=== PATIENT | female | born 1950 | race Caucasian/White ===

== ENCOUNTER 2017-01-11 12:46 | Inpatient (IN) | payer OTHER ==
[~2017-01-11] VITALS: Ht 166.4 cm; Wt 81.6 kg
[~2017-01-11 12:46] MED LIST: ASCO100089 PO; CHOL5000 PO; CYAN100017 SL; LACT1CAP73 PO; MAGN420T PO; MULT1CAP33 PO; VARI1940 SQ; VITA600C3 PO
[2017-01-11 13:00] VITALS: BP 145/87; PULSE 69; RESP 18; O2SAT 99
[2017-01-11 14:01] LABS: BASOPHILS % (AUTO) 0.2 % (0-3); EOSINOPHILS % (AUTO) 0.7 % (0-5); MONOCYTES % (AUTO) 10.5 % (4-12); Mean Corpuscular Hemoglobin 29.5 pg (27.0-35.0); Mean Corpuscular Volume 90.8 fL (81-100); NEUTROPHILS % (AUTO) 78.9 % (40-74); Platelet Count 171 bil/L (150-400)
[2017-01-11 14:22] LABS: Magnesium 2.1 mg/dL (1.6-2.6)
--- NOTE | 2017-01-11 15:54 | ED.REPORT ---
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 Associated symptom of subjective fever for the past week. She states that she noticed that the skin on her bottom started flanking 5-6 weeks ago. She treated with antibiotic ointment with no relief. Symptoms then progressed to "pimples" diffusely across her buttocks, and a large abscess on the right buttock that developed 9 days ago that has since begun draining after the application of hydrogen peroxide. Patient denies cough, sore throat, chest pain , nausea, vomiting, diarrhea, and urinary symptoms. Nursing Notes Stated Complaint: SWELLING ON BOTTOM/DRAINING Chief Complaint: Skin Rash/Abscess Nursing Notes Reviewed: Yes Allergies: Coded Allergies: Penicillins (Verified Allergy, Intermediate, Hives, 01/11/17) codeine (Verified Adverse Reaction, Intermediate, Nausea, 01/11/17) Scheduled Ascorbic Acid (Vitamin C) 1,000 Mg Tab.chew 2,000 MG PO DAILY Cholecalciferol (Vitamin D3) (Vitamin D3) 5,000 Unit Capsule 5,000 UNIT PO DAILY Cyanocobalamin (Vitamin B-12) (Vitamin B-12) 1,000 Mcg Tab.subl 1,000 MCG SL DAILY Magnesium Oxide (Magnesium Oxide) 420 Mg Tablet 1,260 MG PO DAILY Multivitamin (Multivitamins) 1 Each Capsule 1 EACH PO DAILY Vitamin E Acetate (Vitamin E) 600 Unit Capsule 600 UNIT PO DAILY Zoster Vaccine Live/Pf (Zostavax Vial) 19,400 Unit Vial 19,400 UNIT SQ DIRECTED General Time Seen by MD: 15:53 Chief Complaint Abscess, Rash Hx Obtained From: Patient Arrived By: Walk-in Onset Occurred: More than a week ago... (9 days) Symptom Duration: Since onset Location: : Buttock Quality: Painful Severity: Current: Moderate Severity: Maximum: Moderate Associated with: Reports Fever, Denies Abdominal pain, Denies Nausea, Denies Sore throat, Denies Vomiting Pertinent Negative: Pt denies other symptoms Similar Sx Previous: No Past Medical History Past Medical History Neuromyotonia Denies: COPD, Cancer, Congestive heart failure, Coronary artery disease, Diabetes mellitus, Hypertension, Stroke Denies: Atrial fibrillation Smoking History Never Smoker Social History Other Social History: Good social support, Review of Systems Constitutional: Reports: Fever Respiratory: Denies: Non-productive cough, Shortness of breath Cardiovascular: Denies: Chest pain GI: Denies: Abdominal pain, Diarrhea, Nausea, Vomiting Skin: Reports Rash, Reports Swelling Complete sys rev & neg: except as marked. Female: Denies: Dysuria, Hematuria, Incontinence, Urinary frequency, Urinary urgency, Urination decreased, Urination increased Physical Exam Initial Vital Signs Vital Signs (First) Date Time Temp Pulse Resp B/P Pulse Ox O2 Delivery O2 Flow Rate FiO2 01/11/17 13:00 37.2 69 18 145/87 99 Room Air Initial VS: Reviewed Head / Eyes: Atraumatic, Normocephalic Neck: Supple, Non-tender, Full range of motion Respiratory: Breath sounds normal, Clear to auscultation, No respiratory distress Cardiovascular: Regular rate & rhythm, Heart sounds normal, Intact distal pulses Abdomen / GI: Soft, Non-tender, No guarding, No rebound, No distention Extremities: Vascular intact, Neuro intact, No swelling, No tenderness Neurologic: Alert, Oriented, Nonfocal General/Constitutional: Awake, Alert, Well developed, Well nourished Skin: Warm, Dry, Intact Rash / Lesion Notes: BUTTOCKS: Dense confluent erythematous rash spanning 10cm to either side of middle cleft of the buttocks. Perianal area spared. Multiple erythematous papules. Right buttock near infragluteal fold [id number] induration with macerated 2x2cm ulcer. Left upper buttock 3x3cm with a 1x1cm macerated ulcer FACE: Erythematous malar rash. Interpretation & Diagnostics Bedside US Large partially organized phlegmon on the right buttock. Much smaller phlegmon on the left buttock. Lab Results Interpretation Result Diagram: 01/11/17 1345 01/11/17 1345 Test 01/11/17 13:45 01/11/17 15:22 White Blood Count 17.7th/mm3 (3.8-10.1) Red Blood Count 4.57mil/mm3 (3.90-5.20) Hemoglobin 13.5g/dL (12.0-15.6) Hematocrit 41.5% (35.0-46.0) Mean Corpuscular Volume 90.8fL (81-100) Mean Corpuscular Hemoglobin 29.5pg (27.0-35.0) Mean Corpuscular Hemoglobin Concent 32.5% (32.0-37.0) Red Cell Distribution Width 12.7% (12.3-15.4) Platelet Count 171bil/L (150-400) Neutrophils (%) (Auto) 78.9% (40-74) Lymphocytes (%) (Auto) 9.2% (14-46) Monocytes (%) (Auto) 10.5% (4-12) Eosinophils (%) (Auto) 0.7% (0-5) Basophils (%) (Auto) 0.2% (0-3) Sodium Level 138mEq/L (134-144) Potassium Level 4.2mEq/L (3.5-5.2) Chloride Level 99mEq/L (97-108) Carbon Dioxide Level 28mmol/L (18-29) Blood Urea Nitrogen 10mg/dL (8-27) Creatinine 0.80mg/dL (0.57-1.00) Estimat Glomerular Filtration Rate 103mL/min (>59) Glucose Level 123mg/dL (60-99) Calcium Level 9.1mg/dL (8.5-10.1) Magnesium Level 2.1mg/dL (1.6-2.6) Total Bilirubin 0.3mg/dL (0.0-1.2) Aspartate Amino Transf (AST/SGOT) 18U/L (0-50) Alanine Aminotransferase (ALT/SGPT) 19U/L (0-32) Alkaline Phosphatase 122U/L (25-165) Total Protein 7.3g/dL (6.4-8.4) Albumin 3.9g/dL (3.4-5.0) Hold Brush Top Tube Received (Received) Hold Urine Received (Received) Re-Eval/Medical Decision Re-Evaluation/Progress #1: Time of Eval: 16:15 Re-Evaluation/Progress Note: Completed bedside US. Updated patient on the plan of care. Re-Evaluation/Progress #2: Time of Eval: 17:52 Re-Evaluation/Progress Note: Discussed lab results and need for admission. Patient is amenable to the plan. All other questions addressed. Re-Evaluation/Progress #3: Time of Eval: 18:48 Re-Evaluation/Progress Note: Discussed plan to be seen by Dr. Le, Dermatology. Consultation #1: Referral / Consult Name: Brian Danielle MD Consulted With: Surgeon Call Returned at: 17:03 Deckhand Oyster Dredge: Will see patient Consultation #2: Referral / Consult Name: Brian Danielle MD Call Returned at: 17:29 Note: Dr. Danielle, Surgeon, is now present at the bedside. Discussed patient's case. He recommends admission. Consultation #3: Referral / Consult Name: Maldonado Lloyd MD Consulted With: Hospitalist Call Returned at: 18:02 Deckhand Oyster Dredge: Agrees with eval, Agrees with plan, Accepts admit Consultation #4: Referral / Consult Name: Dre Le DO Consulted With: On-call physician (Dermatology) Call Returned at: 18:07 Note: Called Dr. Le, Con[employer]ator. No answer. Left a message. Consultation #5: Referral / Consult Name: Dre Le DO Consulted With: On-call physician (Dermatology) Call Returned at: 18:41 Deckhand Oyster Dredge: Will see patient Note: Dr. Le called back. Discussed patient case. He will see the patient pending determination of inpatient privileges. If not, he will see the patient after she is discharged. Counseled Regarding: Diagnosis, Lab results, Need for admission Discharge & Departure Impression: Primary Impression: Dermatitis Additional Impression: Abscess of buttock Disposition: ADMITTED TO HOSPITAL Discharge Condition All VS Reviewed: Yes Condition: Stable Referrals: Meseret Echeverria MD (PCP) Dre Le Attestation Portions of this note were transcribed by Og Du. I, Dr. Rhodes, personally performed the history, physical exam and medical decision-making; I reviewed and confirmed the accuracy of the information in the transcribed note. Signed by: Laisha Alfred, 01/11/2017 and 18:51 copies to: Meseret Echeverria MD; Dre Le Kirk H MD Jan 11, 2017 15:54 OG DU Jan 11, 2017 16:16
[2017-01-11] MEDS ORDERED: TerBINafine 1% 15 Gm Cream TOPICAL ONE (18:00)
[2017-01-11] MEDS ORDERED: CeFAZolin Inj 1 GM in IV Premix 1 EACH IV ONE (18:00)
[2017-01-11] MEDS ORDERED: Trimethoprim-Sulfa 160 mg-800 mg Tablet PO ONE (18:00)
[2017-01-11] MEDS ORDERED: Polyethylene Glycol (PEG) 17 Gm Powder PO PRN (18:05)
[2017-01-11] MEDS ORDERED: Ondansetron 2 mg/mL 2 mL Inj IVPUSH PRN (18:05)
[2017-01-11] MEDS ORDERED: Alum-Mag Hydrox-Simeth 30 mL Suspension PO PRN (18:05)
[2017-01-11] MEDS: 0.9% Sodium Chloride 1,000 ML IV SCH (19:10)
[2017-01-11 20:25] VITALS: BP 147/72; PULSE 90; O2SAT 97
--- NOTE | 2017-01-11 20:29 | CONS ---
[address] [address] CONSULTATION REPORT PATIENT: SULY MYRICK : 1950 MR#: [id number] ADMIT: 01/11/2017 JOB ID: [id number] DATE OF SERVICE: 01/11/2017 CHIEF COMPLAINT: This is a patient of Dr. Rhodes who has asked me to consult on this woman with bilateral buttock lesions in the emergency department. HISTORY OF PRESENT ILLNESS: This is a patient with a history of neural myotonia and chronic asymptomatic malar rash who presents to the emergency department with six weeks of bilateral skin changes on her buttocks, fever for one week, recent onset of punctate pustules on her bilateral buttocks and now one week of a focal painful lesion on her right buttock that has begun weeping. MEDICATIONS: Limited to vitamins. ALLERGIES: 1. PENICILLIN. 2. CODEINE. SOCIAL HISTORY: She is , seen with her . Negative tobacco. Negative daily alcohol use. REVIEW OF SYSTEMS: Per Dr. Rhodes's note. PHYSICAL EXAMINATION: Directed examination reveals that she does have diffusely thickened, erythematous skin that blanches onto the bilateral buttocks that appears to be some sort of contact dermatitis. She does have some small pustules surrounding these areas. On her left hip, she has a small area of induration on the right. Right hip she has a larger area of induration with some superficial skin breakdown, no fluctuance and no purulence Dr. Rhodes has performed a bedside ultrasound that has demonstrated a phlegmon of this mass with some fluid components in this area. LABORATORY DATA: Her white count is 17.7, hematocrit is 41. Chemistries are normal. Glucose is 123. IMPRESSION/PLAN: This appears to be a relatively healthy, 66-year-old woman with some sort of a skin rash on her buttocks with now secondary pustules and an area of cellulitis and possible forming abscess. Given the overall condition of her skin, I would not want to make an incision for drainage unless absolutely mandatory at this point. I have discussed the case with Dr. Rhodes. His plan was to have her admitted to the Medicine Service for intravenous antibiotics and wound care. I think it is also important that we get a dermatology consult to come by and take a look at her in case the combination of the malar rash and the buttocks rash reveal some sort of underlying dermatologic diagnosis that could be treated. Ideally, we will get her underlying skin problem on her buttocks under control prior to the need for incision and drainage of a buttock abscess. General Surgery will follow along this hospitalization.
--- NOTE | 2017-01-11 23:27 | PCM.HPMED ---
Subjective Date of Service Jan 11, 2017 Primary Provider: Admitting Physician: Maldonado Lloyd MD Primary Care Physician: Meseret Echeverria MD Attending Physician: Maldonado Lloyd MD Admit Status: From the Emergency Department, 23-Hour Observation, Non-Telemetry Chief Complaint: buttock abscess History of Present Illness: Bar Venegas is a 66 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 ER accompanied by her complaining of a painful rash and abscess on her buttocks. Associated symptom of subjective fever with some chills. She states that she noticed that the skin on her bottom started flanking 5-6 weeks ago. She treated with antibiotic ointment with no relief. Symptoms then progressed to "pimples" diffusely across her buttocks, and a large abscess on the right buttock that developed 9 days ago that has since begun draining after the application of hydrogen peroxide. She also has another smaller abscess in the upper left upper buttock area which is also draining. Patient denies cough, sore throat, chest pain, nausea, vomiting, diarrhea, and urinary symptoms. Case discussed with Dr Rhodes, he spoke to Dr Danielle who evaluated the patient and recommended admission for IV antibiotics. Labs noted for leukocytosis. Review of Systems: Pertinent positives as noted in HPI. All other systems were reviewed and are negative Allergies Coded Allergies: Penicillins (Verified Allergy, Intermediate, Hives, 01/11/17) codeine (Verified Adverse Reaction, Intermediate, Nausea, 01/11/17) Home Medications From Bar Castillo [id number] 1950 12/30/2015 11:40 AM 11/17 celecoxib 200 mg capsule take 1 capsule by oral route every day as needed Daily Multiple tablet take 1 tablet by oral route every day with food hydrocodone 5 mg-acetaminophen 325 mg tablet take 1 tablet by oral route every 6 hours as needed for pain magnesium oxide 1440mg dialy Vitamin C 2400mg daily Vitamin D3 5,000 unit tablet 1 daily vitamin E 600 unit capsule PMH Vitamin B deficiency Autoantibody titer positive Smooth muscle spasm White matter abnormality on MRI of brain Abnormal gait due to Possible Neuromyotonia Elevated Blood pressure but no Hypertension Diverticulosis . Surgical History No surgeries Family History Father had myocardial infarction Mother recently she was over 90 Social History Hx Alcohol Use: No Hx Substance Use: No Hx Tobacco Use: No Smoking Status: Never Smoker Living Arrangement: with Family Exam Vital Signs Vital Sign - Last Date Time Temp Pulse Resp B/P Pulse Ox O2 Delivery O2 Flow Rate FiO2 01/11/17 13:00 37.2 69 18 145/87 99 Room Air Exam General: Alert, Oriented X3, Cooperative, No acute Distress Eyes: PERRLA, Scleral Anicteric Mouth: Mouth Normal, Mucous Membranes Moist/[place] Neck: Supple, no Thyromegaly, trachea central. Chest & Lungs: Clear to auscultation & percussion, No adventitious breath sounds, no crackles, no wheeze Cardiovascular: Normal S1, Normal S2, No Murmurs/Rubs/Gallops, Regular Rate/ Rhythm, (No JVD, no peripheral edema) Pulses: Radial (present and equal), Dorsalis Pedi (present and equal) Abdomen: Soft, Non-tender, Non-distended, Normoactive bowel tones. Musculoskeletal: Unremarkable. Normal range of motion, no swollen or erythematous joints Extremities: No edema, no cyanosis, no clubbing. Skin: Around the buttock area there is dense erythematous rash spanning 10 cm to either side of the midline cleft of the buttocks. Perianal area spared. Multiple erythematous papules. Right buttock near infragluteal fold 10x10 cm induration with macerated 2x2 cm ulcer. Left upper buttock 3x3 cm with a 1x1 cm ulcer Neurological: Grossly neurologically intact, has generalized weakness, chronic slurring Speech, Sensation Intact Lymphatic: Lymph nodes Cervical and Axillary not palpable Lab and Diagnostics Labs Laboratory Tests Test 01/11/17 13:45 01/11/17 15:22 White Blood Count 17.7th/mm3 (3.8-10.1) Red Blood Count 4.57mil/mm3 (3.90-5.20) Hemoglobin 13.5g/dL (12.0-15.6) Hematocrit 41.5% (35.0-46.0) Mean Corpuscular Volume 90.8fL (81-100) Mean Corpuscular Hemoglobin 29.5pg (27.0-35.0) Mean Corpuscular Hemoglobin Concent 32.5% (32.0-37.0) Red Cell Distribution Width 12.7% (12.3-15.4) Platelet Count 171bil/L (150-400) Neutrophils (%) (Auto) 78.9% (40-74) Lymphocytes (%) (Auto) 9.2% (14-46) Monocytes (%) (Auto) 10.5% (4-12) Eosinophils (%) (Auto) 0.7% (0-5) Basophils (%) (Auto) 0.2% (0-3) Sodium Level 138mEq/L (134-144) Potassium Level 4.2mEq/L (3.5-5.2) Chloride Level 99mEq/L (97-108) Carbon Dioxide Level 28mmol/L (18-29) Blood Urea Nitrogen 10mg/dL (8-27) Creatinine 0.80mg/dL (0.57-1.00) Estimat Glomerular Filtration Rate 103mL/min (>59) Glucose Level 123mg/dL (60-99) Calcium Level 9.1mg/dL (8.5-10.1) Magnesium Level 2.1mg/dL (1.6-2.6) Total Bilirubin 0.3mg/dL (0.0-1.2) Aspartate Amino Transf (AST/SGOT) 18U/L (0-50) Alanine Aminotransferase (ALT/SGPT) 19U/L (0-32) Alkaline Phosphatase 122U/L (25-165) Total Protein 7.3g/dL (6.4-8.4) Albumin 3.9g/dL (3.4-5.0) Hold Brush Top Tube Received (Received) Hold Urine Received (Received) Microbiology 01/11/17 Blood Culture, Received Pending Result Diagram: 01/11/17 1345 01/11/17 1345 Assessment & Plan Bar Venegas is a 66 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 ER accompanied by her complaining of a painful rash and abscess on her buttock 1. Acute Buttock abscesses. Present on admission There is some suspicion it started with a possible dermitis that may have developed into abscesses due to skin breakdown allow bacterial assess. - continuing Cefazolin IV - blood cultures and wound cultures to guide further antibiotics choice - wound care consult - possible a Curing Press Maintainer consult maybe needed 2. Leukocytosis. Acute. Present on admission No sepsis as criteria are not meet - continue IV fluids and antibiotics as above 3. Neuromyotonia. Chronic Unfortunately there are no good therapy at the moment and costly - print finishing worker assessment if there are any needs at home - continue to follow up with Dr Rhoades as outpatient - Acetaminophen as needed for mild pain/fever/headache - Bowel regimen as needed - Antiemetic as needed Patient is admitted under observation status with expected length of stay less than 2 midnights due to severity of presenting symptoms, risk of adverse event, and complexity of treatment plan. . Resuscitation Status: CPR: Attempt Resuscitation Maldonado Lloyd MD Jan 11, 2017 19:42
[2017-01-12 00:38] VITALS: BP 167/79; PULSE 82; RESP 18; O2SAT 98
[2017-01-12] MEDS: CeFAZolin Inj 1 GM in IV Premix 1 EACH IV SCH ×3 (01:01→18:35)
[2017-01-12] MEDS: Heparin 5,000 Unit/mL Inj SUBQ SCH ×3 (01:01→18:35)
--- NOTE | 2017-01-12 03:34 | NUR ---
ADMIT/PAIN Patient arrived on unit from ED, able to ambulate and transfer one person stand by assist. Patient oriented to room in addition to watching admission video. Patient arrived with belongings then sent purse home with . Denies any pain at this time, however c/o discomfort with movement.
[2017-01-12] MEDS: 0.9% Sodium Chloride 1,000 ML IV SCH ×2 (04:03→12:38)
[2017-01-12 06:11] VITALS: BP 146/81; PULSE 79; RESP 16; O2SAT 99
[2017-01-12 06:48] LABS: BASOPHILS % (AUTO) 0.1 % (0-3); EOSINOPHILS % (AUTO) 1.5 % (0-5); MONOCYTES % (AUTO) 13.5 % (4-12); Mean Corpuscular Volume 90.6 fL (81-100); NEUTROPHILS % (AUTO) 69.7 % (40-74); Platelet Count 174 bil/L (150-400)
[2017-01-12 08:09] VITALS: BP 114/64; PULSE 53; RESP 16; O2SAT 100
[2017-01-12] MEDS: Polyethylene Glycol (PEG) 17 Gm Powder PO SCH (10:41)
--- NOTE | 2017-01-12 10:48 | PCM.PNSURG ---
Subjective Date of Service: Jan 12, 2017 Visit Information: Reason for Visit Dermatitis, Buttock Abscess Surgery/Surgery Date Post-Op Day # Date of Admission: Jan 11, 2017 at 19:16 Hospital Day #2 Subjective: Has not been seen by dermatology. Complains of painful desquamating red rash on both buttocks 9 days, worse 3 days ago. Only medications are ibuprofen and vitamins. Cannot relate a history of any significant contact to a toxin. [place] not been out of the country recently. Postop General: Other (as above) Pain Management: Other (IV Toradol and acetaminophen) Postop Activity: Ambulating in Room Only Objective Objective Buttocks are examined: Both buttocks are almost entirely covered with a red not raised desquamating rash with multiple satellite lesions on the left buttock. There is an approximately 4 cm area of induration at the left superior buttock and an approximately 8 cm area of induration at the right inferior buttock. Both areas of induration are weeping sero- purulent material. Left buttock drainage is sent for culture and sensitivity. Vital Sign- Last 8 Hours Date Time Temp Pulse Resp B/P Pulse Ox O2 Delivery O2 Flow Rate FiO2 01/12/17 08:09 37.2 53 16 114/64 100 Room Air 01/12/17 06:11 37.0 79 16 146/81 99 Room Air Intake and Output- Last 8 Hour 01/12/17 Cumulative From/Thru 06:59 01/11/17 13:00 - 01/12/17 05:58 Intake Total 890 ml 1890 ml Balance 890 ml 1890 ml Intake IV Total 890 ml 1890 ml General: Alert, Cooperative, No Acute Distress Lungs: Clear to Auscultation Heart: Regular Rate/Rhythm Neuro: Normal Speech Result Diagram: 01/12/17 0630 01/11/17 1345 Assessment & Plan Impression Primary diagnosis: Bilateral buttock desquamating skin rashes with 2 areas of induration most likely forming abscesses. HD #2 pending dermatology consultation prior to incision and drainage. Other diagnoses: 1. Vitamin B deficiency 2. Autoantibody titer positive 3. Smooth muscle spasm 4. White matter abnormality on MRI of brain 5. Abnormal gait due to Possible Neuromyotonia 6. Elevated Blood pressure but no Hypertension 7. Diverticulosis 8. Chronic neuromyotonia Problems: Plan 1. Left buttock area of induration drainage sent for culture and sensitivity. 2. I and D's pending dermatology consultation. Pain Management: Toradol Acetaminophen VTE Prophylaxis: Sub-Q Heparin (Unfractionated) Resuscitation Status: CPR: Attempt Resuscitation Ej Cooper PA-C Jan 12, 2017 10:48
--- NOTE | 2017-01-12 12:31 | PCM.PNMED ---
Subjective Date of Service Jan 12, 2017 Subjective pt had one episode of breakthrough fever on Cefazolin 37.6, however remained afebrile afterwards surgery recommended serm consult, Dr.Sam Cardenas Exam Vital Signs Vital Sign - Last Date Time Temp Pulse Resp B/P Pulse Ox O2 Delivery O2 Flow Rate FiO2 01/12/17 08:09 37.2 53 16 114/64 100 Room Air Intake and Output 01/11/17 01/11/17 01/12/17 Cumulative From/Thru 15:00 23:00 07:00 01/11/17 13:00 - 01/12/17 05:58 Intake Total 1000 ml 890 ml 1890 ml Balance 1000 ml 890 ml 1890 ml Intake IV Total 1000 ml 890 ml 1890 ml Exam NAD, comfortably laying down on the bed no JVD, MMM, no LAD RRR, nl s1, s2 no mrg CTAB, no w,c S,ND,NT,normoactive BS+ warm, no edema, pulses 2/2 SKIN:two indurated ulcers with discolored base with surrounding erythema on Lt buttock and rt buttock, Lt 3cm-4 diameter round shape >Rt 1-2cm, tender to palpate IVs and Medications Medications Reviewed: Medications were reviewed in detail Lab and Diagnostics Result Diagram: 01/12/17 0630 01/11/17 1345 Assessment & Plan Bar Venegas is a 66 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 ER accompanied by her complaining of a painful rash and abscess on her buttock acute, active #Acute Buttock abscesses. Present on admission, no images to assess depth, subacute onset, wbc, subjective fever, -appreciate surgery consult for I&D, plan to I&D after derm evaluate the wound -as per Dr.Sam Cardenas, he is not able to see patient, will coordinate with surgery -follow up eval also with wound care service, -Cefazolin started, clinically stable despite one episode of fever, no SIRS, continue for now, low threshold to broaden to cover MRSA, send MRSA screen as well. -awaits wound culture from wound care/surgery, FU BCX #Facial redness, chronic more than >14yrs, pt was told that it was Rosacea, no hx of SLE in the past. -given its chronicity, no joint sx, this is probably right dz but given no work- up, will send NEHEMIAS, anti ds-DNA ab to exclude lupus chronic, stable #Neuromyotonia. Chronic, Unfortunately there are no good therapy at the moment and costly, follow Miquel Rhoades as outpatient dispo: based on surgical intervention diet: general Full Code VTE Prophylaxis: Sub-Q Heparin (Unfractionated) VTE Mechanical Devices: Intermittant Pneumatic CD Resuscitation Status: CPR: Attempt Resuscitation Time spent 35min Ariel Raymond MD Jan 12, 2017 12:10
[2017-01-12 13:03] VITALS: BP 136/74; PULSE 72; RESP 16; O2SAT 99
--- NOTE | 2017-01-12 13:49 | NUR ---
Pain P: pt's pain level not decreasing w/Tylenol I: MD prescribed Toradol, primary RN admin via IV push E: Assess pain 30 min later,pt reported 2/10 on pain scale
--- NOTE | 2017-01-12 15:49 | NUR ---
WOUND/ABSCESS Bilateral wound abscesses on buttocks were draining sanguineous/purulent drainage after patient got up and used bathroom. IV abx running. Placed abd pad to help absorb drainage and patient is wearing brief. Wound care came to assess patient and changed dressing. Wound culture swab sent to lab. Patient's pain is better managed with IV toradol. Continue to monitor on hourly rounding.
--- NOTE | 2017-01-12 16:17 | NUR ---
Social Work-assessment: Data:EMR reviewed. Pt is a 66 y/o female who was admitted on 01/11/17 for dermatitis per H&P. Pt's insurance is and PCP is Meseret Echeverria MD. EMR Reviewed. SW met with pt and at bedside, SW role explained. Pt is alert and oriented x3. Pt resides at home with her on [address] where she remains independent with ADLs. Pt drives and uses a fww and cane when out in the community. Pt has no HH or SNF history. Pt has no fci care insurance or VA benefits. SW discussed DPOA/ advanced directive, pt confirms she has completed this, SW encouraged a copy to be brought in. Wound care is following pt. SW provided phone number and plan on white board in room. SW will continue to follow. Assessment:Pt who is independent at baseline. Plan:Pt to discharge home medically stable via POV. R/O wound care needs. SW will continue to follow. COOKIE Ferris
--- NOTE | 2017-01-12 17:57 | NUR ---
Wound Care Wound evaluation order received, patient seen at bedside. 66 yo female with 2 large indurated areas at her left (5cm) and right(10cm) buttock, with ulcerations centrally which are necrotic and draining purulent boss fluid on a moderate basis. Right ulceration measures 4.5 cm x 3 cm and left measures 1 cm x 1.5 cm. Both buttocks have erythema in a field of skin desquamation. Patient is currently on iv cefazolin but left buttock wound was cultured anyway. Redressed with abd pads and tape. Will need surgical I&D of these areas and then depending on the nature of wounds post surgically will probably need NPWT as well. Will follow up post surgically, for now nursing can change dressings PRN for soiling.
[2017-01-12 18:23] VITALS: BP 147/76; PULSE 81; RESP 16; O2SAT 98
--- NOTE | 2017-01-12 19:38 | NUR ---
NEW ABBESS After patient used bathroom this afternoon, indicated a new possible abbess. Upon assessment, patient's L labia is red and swollen with hard palpable soft tissue. No open area or drainage present.
[2017-01-12 20:30] VITALS: BP 125/74; PULSE 78; RESP 16; O2SAT 95
[2017-01-13] VITALS (17 sets, daily range): BP systolic 73–148; BP diastolic 37–84; PULSE 54–90; RESP 13–18; O2SAT 96–100
[2017-01-13] MEDS: 0.9% Sodium Chloride 1,000 ML IV SCH ×2 (01:25→10:03)
[2017-01-13] MEDS: Heparin 5,000 Unit/mL Inj SUBQ SCH ×3 (01:29→18:24)
[2017-01-13] MEDS: CeFAZolin Inj 1 GM in IV Premix 1 EACH IV SCH (01:30)
--- NOTE | 2017-01-13 03:37 | NUR ---
Pain/drainage After ambulating partway through shift, pt. was in severe pain. IV toradol given. Pt. is now sleeping. Abscess on left buttock is having minimal serous drainage, where abscess on rt. buttock is having moderate to heavy serous drainage. Gave pt. education on being NPO at midnight as ordered by . Pt. understood and has been NPO since midnight. Will continue to monitor.
[2017-01-13] MEDS ORDERED: Vancomycin Inj 1,250 MG in 0.9% Sodium Chloride 250 ML IV ONE (08:00)
[2017-01-13] MEDS: Polyethylene Glycol (PEG) 17 Gm Powder PO SCH (08:14)
[2017-01-13 08:24] LABS: BASOPHILS % (AUTO) 0.4 % (0-3); EOSINOPHILS % (AUTO) 4.3 % (0-5); MONOCYTES % (AUTO) 12.8 % (4-12); Mean Corpuscular Volume 90.5 fL (81-100); NEUTROPHILS % (AUTO) 61.6 % (40-74); Platelet Count 174 bil/L (150-400)
[2017-01-13] MEDS ORDERED: DEXTROSE 5% IV SCH (08:30)
[2017-01-13] MEDS: Vancomycin Dose per Pharmacist XX SCH (08:30)
[2017-01-13] MEDS ORDERED: CEFAZOLIN IV SCH (08:30)
[2017-01-13 08:59] LABS: Magnesium 1.9 mg/dL (1.6-2.6); Phosphorus 2.8 mg/dL (2.5-4.9)
[2017-01-13 09:36] LABS: ERYTHROCYTE SEDIMENTATION RATE 79 mm/hr (0-40)
--- NOTE | 2017-01-13 12:12 | PCM.PNMED ---
Subjective Date of Service Jan 13, 2017 Subjective pt had mild fever 37.6 again, still in pain, found to have new abscess in labium plan to get CT and possible I&D per surgery today abx switched to vanc given fever, prelim cultures-staph aureus Exam Vital Signs Vital Sign - Last Date Time Temp Pulse Resp B/P Pulse Ox O2 Delivery O2 Flow Rate FiO2 01/13/17 08:58 36.8 65 14 140/79 96 Room Air Intake and Output 01/12/17 01/12/17 01/13/17 Cumulative From/Thru 15:00 23:00 07:00 01/11/17 13:00 - 01/13/17 06:09 Intake Total 1309 ml 1991 ml 5190 ml Output Total 1100 ml 1000 ml 2100 ml Balance 209 ml 991 ml 3090 ml Intake Oral 697 ml 900 ml 1597 ml IV Total 612 ml 1091 ml 3593 ml Output Urine Total 1100 ml 1000 ml 2100 ml Exam NAD, comfortably laying down on the bed no JVD, MMM, no LAD RRR, nl s1, s2 no mrg CTAB, no w,c S,ND,NT,normoactive BS+ warm, no edema, pulses 2/2 SKIN:sterilely dressed, labial area-tender, redness, indurating ulcer IVs and Medications Medications Reviewed: Medications were reviewed in detail Lab and Diagnostics Result Diagram: 01/13/17 0800 01/13/17 0800 Assessment & Plan Bar Venegas is a 66 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 ER accompanied by her complaining of a painful rash and abscess on her buttock acute, active #Acute Buttock abscesses and perineal abscess, Present on admission, no images to assess depth, subacute onset, wbc, subjective fever, -appreciate surgery consult for I&D, plan to I&D after CT -as per Dr.Sam Cardenas, he is not able to see patient, no hospital privilege -follow up eval also with wound care service, -Cefazolin started on adm, switched to vanc 01/13 given prelim culture result, recurrent fever -awaits final wound culture from wound care/surgery, FU BCX #Facial redness, chronic more than >14yrs, pt was told that it was Rosacea, no hx of SLE in the past. -given its chronicity, no joint sx, this is probably right dz but given no work- up, sent NEHEMIAS, anti ds-DNA ab to exclude lupus chronic, stable #Neuromyotonia. Chronic, Unfortunately there are no good therapy at the moment and costly, follow Miquel Rhoades as outpatient dispo: based on surgical intervention diet: general Full Code VTE Prophylaxis: Sub-Q Heparin (Unfractionated) VTE Mechanical Devices: Intermittant Pneumatic CD Resuscitation Status: CPR: Attempt Resuscitation Time spent 35min Ariel Raymond MD Jan 13, 2017 12:12
[2017-01-13] MEDS: cefTRIAXone Inj 1,000 MG in Dextrose 5% Minibag Plus 50 ML IV SCH ×2 (13:15→15:13)
[2017-01-13] MEDS: Clindamycin Inj 900 MG in IV Premix 1 EACH IV SCH ×3 (13:15→18:24)
--- NOTE | 2017-01-13 13:37 | PROG NOTE ---
[address] [address] PROGRESS NOTE PATIENT: SULY MYRICK : 1950 MR#: [id number] ADMIT: 01/11/2017 JOB ID: [id number] DATE: 01/13/2017 SUBJECTIVE: The patient was seen by wound care yesterday, not seen by a dermatology. She has been afebrile this morning. Vital signs are stable. She was seen by wound care yesterday. This morning on rounds it seemed that her problems had progressed in that she had had skin necrosis over the right-sided buttock lesion, with some necrotic fat underneath, but not a really large pus pocket. She developed additional pustules of satellite lesions as well. She was complaining now of the redness in the perineal area with a new lesion that was firm and tender. I contacted Dr. Le of Dermatology, who was good enough to come over and examine her. I also ordered a CAT scan because of the concern of possible deep infection in the perineum as well as the concern of fistulization, although she has no history suggestive of Crohn disease. Currently her examination is stable although she continues to slough some of the skin overlying the two buttock lesions. Dr. Le and I have discussed the differential diagnosis including the possibility of pyoderma gangrenosum with secondary infection versus some sort of necrotizing progressive soft tissue infection. We also discussed whether this could simply be an extremely bad case of MRSA infection. He feels that her malar rash represents a standard rosacea and is likely not related. Although she states that her neuromyotonia is an autoimmune disorder, he feels that this is most likely primarily an infectious problem. PLAN: The plan will be to take her to the operating room and I will put her up in lithotomy under general anesthetic. I will drain whatever pus needs to be drained, but I do think we need to broaden the spectrum of her antibiotic coverage. I would suggest an infectious disease consultation, although I am not certain that on is available today. I will order Zosyn and clindamycin pending our trip to the OR. I have told her that I am hoping to simply drain two or three areas, but I have warned her about the possibility of finding some sort of necrotizing soft tissue infection that would require a greater amount of debridement and possibly even an eventual skin graft. She agrees to proceed. I will also biopsy the wound edges to rule out pyoderma gangrenosum per Dr. Le's suggestion.
--- NOTE | 2017-01-13 14:35 | NUR ---
TRANSFER TO OR Voided prior to going to OR. IV saline locked. Patient stood and transferred to OR gurney with SBA/minimal assistance. Send IV abx with patient to be infused in OR. accompanied patient up to OR.
[2017-01-13] MEDS ORDERED: fentaNYL-PF 50 mCg/mL 2 mL Inj ONE (14:40)
--- NOTE | 2017-01-13 14:59 | DRSVH ---
PROCEDURE: CT PELVIS WITH CONTRAST ([id number]) INDICATIONS: rash and progressive infectious perineal lesions TECHNIQUE: After the administration of intravenous contrast, 5 mm thick sections acquired from the iliac crests to the symphysis. 5 mm coronal and sagittal reformats were acquired. For radiation dose reduction, the following was used: automated exposure control, adjustment of mA and/or kV according to patient size. COMPARISON: [facility], CT, CT CHEST ABD PELVIS W CON, 10/17/2015, 11:56. FINDINGS: Image quality: Excellent. Peritoneum and bowel: Bowel loops demonstrate normal wall thickness and caliber. No free fluid or a ir. Genitourinary: Bladder wall thickness is normal. Exophytic mass protrudes posteriorly from the uter ine fundus, as before, measuring roughly 40 mm, and is not significantly changed. Nodes and vessels: No iliac, pelvic, or inguinal adenopathy by size criteria. Iliac vessels demonst rate normal size and enhancement. Bones: No suspicious bony lesions. Miscellaneous: No inguinal hernias. There is severe subcutaneous edema within the right inferomedia l gluteal region. There are a few small foci of superficial subcutaneous gas within the right inferom edial gluteal region. There is moderate subcutaneous fat stranding within the left inferomedial glute al region. Moderate fat stranding within the subcutaneous fat of the left mons pubis. IMPRESSION: 1. Right greater than left inferomedial gluteal cellulitis. There is associated soft tissue gas withi n the subcutaneous fat of the right inferomedial gluteal region, suggestive of ulceration and/or infe ction with a gas producing organism. Cellulitis within the subcutaneous fat of the left mons pubis. 2. No change in left uterine fibroid. 3. Findings discussed with Dr. Danielle's nurse, May Soriano, on 01.13.17 at 14:57 hrs. She understood t he urgent nature of the findings, and agreed to communicate them to Dr. Danielle as soon as possible. Dictated by: Kenzie Paul M.D. on 01/13/2017 at 14:52 Transcribed by: RAMON on 01/13/2017 at 14:59 Approved by: Kenzie Paul M.D. on 01/13/2017 at 14:59
[2017-01-13] MEDS ORDERED: Lactated Ringer's 1,000 ML IV ONE ×3 (15:03→16:45)
--- NOTE | 2017-01-13 15:04 | PCM.HPANE ---
Patient Data Surgeon Admitting Provider:Maldonado Lloyd MD Attending Provider:Maldonado Lloyd MD Primary Care Physician:Meseret Echeverria MD Other Provider: Reason for Visit Dermatitis, Buttock Abscess Ht/WT & BMI Height (Feet): 5 Height (Inches): 5.50 Weight (Kilograms): 84.200 Body Mass Index 30.56 Allergies Coded Allergies: Penicillins (Verified Allergy, Intermediate, Hives, 01/11/17) codeine (Verified Adverse Reaction, Intermediate, Nausea, 01/11/17) Diabetes History Current Bedside Blood Glucose: 81 MRSA MRSA: No Medications Reported Medications Zoster Vaccine Live/Pf (Zostavax Vial)19,400 Unit Vial19,400 Unit SQ DIRECTED 10/16/15 Vitamin E Acetate (Vitamin E)600 Unit [id number] Unit PO DAILY 10/16/15 Cholecalciferol (Vitamin D3) (Vitamin D3)5,000 Unit Capsule5,000 Unit PO DAILY 10/16/15 Ascorbic Acid (Vitamin C)1,000 Mg Tab.chew2,000 Mg PO DAILY Ref 0 10/16/15 Cyanocobalamin (Vitamin B-12) (Vitamin B-12)1,000 Mcg Tab.subl1,000 Mcg SL DAILY 10/16/15 Magnesium Oxide 420 Mg Tablet1,260 Mg PO DAILY 10/16/15 Multivitamin (Multivitamins)1 Each Capsule1 Each PO DAILY 10/16/15 Discontinued Reported Medications Lactobacillus Combo No.11 (Probiotic)1 Each Cap.sprink1 Each PO TID 10/16/15 History History of ENT Problems?: No Hx of Heart Problems?: No Hx of Respiratory Problem?: No Hx Neurologic Problems?: No Other Neurological Pertinent: neurologic myotonia, muscle spasms, slurred speech. Hx of GI Problems?: No Hx of Problems?: Yes Genitourinary History: Positive for:: Urinary Tract Infection (years ago) Female Hx: Denies:: Currently Other Skin Pertinent History: Abcess on buttocks Hx Musculoskeletal Problems?: Yes Musculoskeletal History: Positive for:: Musculoskeletal Trauma (Neck injury in mid 20's) Hx of Psycho/Social Problems?: No Other History: Positive for:: Thyroid Disease (Nodule and a cyst on thyroid) History Blood Transfusions: Positive for:: Accept Blood Products? Denies:: Blood Transfusions Bedside Blood Glucose: 81 Hx Alcohol Use: NoHx Substance Use: No Smoking Status: Never Smoker Stop/Bang Treated for Sleep Apnea?: No S-Snoring: Do You Snore Loudly: No T-Tired: feel tired, fatigued: No O-Obsered: Observed not breath: No P-Blood Pressure: treated: No B- Body Mass Index > 35 kg/m2: No A- Age over 50: Yes N- Neck Large Circumference: No G- Gender Male: No GEORGETTE Total Score: 0 GEORGETTE Risk Assessment: Low Risk, <3 Yes Risk Assessment Category Category 1A: Patient has history of documented sleep apnea, and HAS NOT received any narcotic, sedative or anesthesia administration during this stay. Category 1B: Patient has history of documented sleep apnea, and HAS received any narcotic , sedative or anesthesia administration during this stay Category 2: Patient has SUSPECTED Obstructive Sleep Apnea, and HAS received any narcotic , sedative or anesthesia administration during this stay. Category 3: Patient has SUSPECTED Obstructive Sleep Apnea and HAS NOT received narcotic, sedative or anesthesia administration during this stay. Category 4: Outpatient in Procedural Areas with known sleep apnea or who screen positive for High Risk via the STOP/BANG questionnaire. Exam Exam Vital Signs Vital Signs Date Time Temp Pulse Resp B/P Pulse Ox O2 Delivery O2 Flow Rate FiO2 01/13/17 08:58 36.8 65 14 140/79 96 Room Air General Appearance: Alert, Oriented X3, Cooperative, No Acute Distress HEENT/AIRWAY: MP 2 Lungs: Clear to Auscultation, Normal Air Movement Heart: Exam Unremarkable, Regular Rate/Rhythm, No Murmurs/Rubs/Gallops Meds/Labs/Diagnostics Admission Meds Current Medications Vancomycin HCl/ Sodium Chloride (Vancocin Inj/ Normal Saline) 250 ml @ 166.667 mls/hr ONCE ONCE IV Last administered on 01/13/17t 09:09; Start 01/13/17 at 08: 00; Stop 01/13/17 at 09:29; Status DC Bedside Blood Glucose: 81 Labs Test 01/11/17 13:45 01/11/17 15:22 01/12/17 06:30 01/13/17 08:00 Hold Brush Top Tube Received (Received) Hold Urine Received (Received) Anti-Nuclear Antibody Screen Negative (Negative) Anti-Double Strand DNA Antibody <1IU/mL (0-9) White Blood Count 11.1th/mm3 (3.8-10.1) Red Blood Count 3.90mil/mm3 (3.90-5.20) Hemoglobin 11.3g/dL (12.0-15.6) Hematocrit 35.3% (35.0-46.0) Mean Corpuscular Volume 90.5fL (81-100) Mean Corpuscular Hemoglobin 29.0pg (27.0-35.0) Mean Corpuscular Hemoglobin Concent 32.0% (32.0-37.0) Red Cell Distribution Width 12.4% (12.3-15.4) Platelet Count 174bil/L (150-400) Neutrophils (%) (Auto) 61.6% (40-74) Lymphocytes (%) (Auto) 20.3% (14-46) Monocytes (%) (Auto) 12.8% (4-12) Eosinophils (%) (Auto) 4.3% (0-5) Basophils (%) (Auto) 0.4% (0-3) Erythrocyte Sedimentation Rate 79mm/hr (0-40) Sodium Level 141mEq/L (134-144) Potassium Level 4.3mEq/L (3.5-5.2) Chloride Level 106mEq/L (97-108) Carbon Dioxide Level 26mmol/L (18-29) Blood Urea Nitrogen 8mg/dL (8-27) Creatinine 0.65mg/dL (0.57-1.00) Estimat Glomerular Filtration Rate 131mL/min (>59) Glucose Level 91mg/dL (60-99) Calcium Level 8.3mg/dL (8.5-10.1) Phosphorus Level 2.8mg/dL (2.5-4.9) Magnesium Level 1.9mg/dL (1.6-2.6) Total Bilirubin 0.2mg/dL (0.0-1.2) Aspartate Amino Transf (AST/SGOT) 16U/L (0-50) Alanine Aminotransferase (ALT/SGPT) 13U/L (0-32) Alkaline Phosphatase 108U/L (25-165) Total Protein 5.6g/dL (6.4-8.4) Albumin 3.1g/dL (3.4-5.0) Procalcitonin 0.07ng/mL (0.00-0.08) Plan Impression Patient chart reviewed, patient interviewed and anesthestic plan with risks, benefits, and alternatives discussed, and informed consent obtained. ASA Physical Status: ASA3 Severe Disease Anesthetic Plan: SAB Bene/Risks/Altern/Consents: Yes HP Complete Prior to Induction: Yes Other myotonia Olvin Jacinto MD Jan 13, 2017 15:03
[2017-01-13] MEDS ORDERED: Lactated Ringer's 1,000 ML IV SCH (15:34)
[2017-01-13] MEDS ORDERED: Lactated Ringer's 500 ML IV PRN (15:34)
[2017-01-13] MEDS ORDERED: HYDROmorphone 1 mg/mL Inj IVPUSH PRN (15:35)
[2017-01-13] MEDS ORDERED: Labetalol 5 mg/mL 4 mL Inj IV PRN (15:35)
[2017-01-13] MEDS ORDERED: MetoCLOpramide 5 mg/mL 2 mL Inj IVPUSH PRN (15:35)
[2017-01-13] MEDS ORDERED: Ondansetron 2 mg/mL 2 mL Inj IVPUSH PRN (15:35)
[2017-01-13] MEDS ORDERED: Phenylephrine 10,000 mCg/mL Inj IVPUSH PRN (15:35)
[2017-01-13] MEDS ORDERED: Dexamethasone 4 mg/mL Inj IVPUSH PRN (15:35)
[2017-01-13] MEDS ORDERED: hydrALAZINE 20 mg/mL Inj IVPUSH PRN (15:35)
[2017-01-13] MEDS ORDERED: Atropine 0.4 mg/mL Inj IVPUSH PRN (15:35)
[2017-01-13] MEDS ORDERED: fentaNYL-PF 50 mCg/mL 2 mL Inj IVPUSH PRN (15:35)
[2017-01-13] MEDS ORDERED: EPHEDrine Sulfate 50 mg/mL Inj IVPUSH PRN (15:35)
--- NOTE | 2017-01-13 16:52 | PCM.ANEP1 ---
Post Anesthesia Phase 1 PACU Phase 1 Assessment Date of Service: Jan 12, 2017 Vital Signs Vital Signs Date Time Temp Pulse Resp B/P Pulse Ox O2 Delivery O2 Flow Rate FiO2 01/13/17 16:45 36.7 61 14 117/56 100 Nasal Cannula 2 01/13/17 16:40 58 14 112/43 100 Nasal Cannula 2 01/13/17 16:38 14 100 01/13/17 16:35 59 14 113/56 100 Nasal Cannula 2 01/13/17 16:30 62 15 108/52 100 Nasal Cannula 2 01/13/17 16:25 59 13 99/48 100 Nasal Cannula 2 01/13/17 16:20 58 15 105/49 100 Nasal Cannula 2 01/13/17 16:15 57 14 95/48 98 Nasal Cannula 2 01/13/17 16:14 18 99 01/13/17 16:10 56 15 83/37 99 Nasal Cannula 2 01/13/17 16:05 60 15 91/45 97 Nasal Cannula 2 01/13/17 16:00 55 17 80/38 100 Simple Mask 8 01/13/17 15:57 36.4 54 13 73/39 98 Simple Mask 8 01/13/17 08:58 36.8 65 14 140/79 96 Room Air Anesthetic Administered: SAB HEBERT's with Equal Strength: No Pain: No Pain Scale Score: 0 Oxygen Delivery: Simple Mask Lungs: Clear to Auscultation, Normal Air Movement Dermatome Level: T10 (Umbilicus) Olvin Jacinto MD Jan 13, 2017 16:52
--- NOTE | 2017-01-13 16:53 | PCM.ANEP2 ---
Post Anesthesia Evaluation ASA/CMS Post Anesthesia VS in Patient's Normal Range?: Yes Resp Stable; Airway Patent?: Yes CV Function & Hydration Stable: Yes Mental Status Recovered?: Yes Pain control Satisfactory?: Yes N/V Control Satisfactory?: Yes Olvin Jacinto MD Jan 13, 2017 16:53
--- NOTE | 2017-01-13 18:03 | NUR ---
TRANSFER FROM PACU Received patient back to room, transferred to hospital bed via slide board. Patient awake and talking. No complaints of nausea or pain. Sensation level @ L1. Unable to move bilateral legs or feet. Slight sensation present, aware of SCD's pumping. I&D areas packed with gauze, minimal drainage present. BG checked and was 75, gave patient juice and had her order her dinner. IV fluids resumed, SCD's in place. Continue to monitor hourly.
[2017-01-13] MEDS: Vancomycin Inj 1,000 MG in IV Premix 1 EACH IV SCH (20:00)
--- NOTE | 2017-01-13 23:41 | OP ---
[address] [address] OPERATIVE REPORT PATIENT: SULY MYRICK : 1950 MR#: [id number] ADMIT: 01/11/2017 JOB ID: [id number] DATE OF SURGERY: 01/13/2017 PREOPERATIVE DIAGNOSIS(ES): Bilateral buttocks and perineal lesions. POSTOPERATIVE DIAGNOSIS(ES): Bilateral buttocks and perineal lesions, final diagnosis pending pathology. SURGEON: Brian Danielle MD. PROCEDURE: Debridement and biopsy of right buttocks lesion, excisional biopsy of left buttocks lesion, incision and drainage of left labial abscess with culture. INDICATIONS: A 66-year-old woman who presented roughly 36 hours ago with a one month plus history of bilateral buttocks rash and roughly one week history of painful lesions that had an infectious aspect to them but were atypical. She received IV vancomycin over the past 36 hours. This process has spread further along her perineum with appearance of one of these indurated lesions on the left labia. She has multiple satellite lesions. The patient was seen earlier today with Dr. Le from Dermatology for a discussion of possible differential diagnosis, specifically whether this is primarily an infectious process versus some sort of systemic inflammatory process with secondary infection. FINDINGS: See below for details of procedure. PROCEDURE: The patient was brought to the operating room and spinal anesthetic was administered due to her history of neuromyotonia. She was placed in a lithotomy position. The perineum was prepped and draped in sterile fashion. Surgical time-out was performed. SCOAP protocol was followed. In addition to her vancomycin, I had added clindamycin and ceftriaxone to her antibiotic regimen. We began with an inspection of the right buttocks lesion which had previously had cutaneous coverage but now had skin necrosis in the central area for approximately a 2 cm diameter crater with irregular shady edge type sides. There was a central area of subcutaneous fat necrosis and I excised necrotic fat. The base of the ulcer was without pus, without fibrous exudate. I irrigated this out and it was not bleeding. I now biopsied two areas of the wound edges and sent these off to the pathology, where frozen sections demonstrated nonspecific inflammation. Preoperative discussion with the pathologist had gone over the differential diagnosis that was in our mind. I now went to the left buttocks and just outside the perimeter of the erythematous skin changes there was one of these nodules that was not necrotic, nor had any pus in it. I did an excisional biopsy of this and sent this off as specimen two, obtained hemostasis in the wound and closed the wound. We now went to the left labia that had some expressible purulence and I made an incision over the purulence, took a culture, and then opened up the area bluntly finding minimal amount of pus, less than 1 cc, but once again area of subcutaneous fat necrosis. This wound was irrigated out, hemostasis was achieved with cautery. I now washed all the lesions gently with saline, we placed a dressing over the two open incisions and we then took the patient out of lithotomy and washed her off. Pathology will be put through on a chappell. For now, I would recommend continuing her vancomycin, Rocephin and clindamycin in case what we are seeing is a manifestation of an aggressive secondary soft tissue infection on her primary process.
[2017-01-14] MEDS: Heparin 5,000 Unit/mL Inj SUBQ SCH ×3 (01:11→17:11)
[2017-01-14] MEDS: Clindamycin Inj 900 MG in IV Premix 1 EACH IV SCH ×3 (01:44→17:34)
[2017-01-14] MEDS: cefTRIAXone Inj 1,000 MG in Dextrose 5% Minibag Plus 50 ML IV SCH ×2 (03:07→15:23)
[2017-01-14 05:01] VITALS: BP 129/73; PULSE 62; RESP 18; O2SAT 97
--- NOTE | 2017-01-14 06:35 | NUR ---
Pain Pt. was in severe pain at one point in the night. IV toradol given which seems to be effective. Will continue to monitor.
[2017-01-14 07:17] LABS: BASOPHILS % (AUTO) 0.6 % (0-3); EOSINOPHILS % (AUTO) 6.2 % (0-5); MONOCYTES % (AUTO) 14.8 % (4-12); Mean Corpuscular Hemoglobin 29.3 pg (27.0-35.0); Mean Corpuscular Volume 90.9 fL (81-100); NEUTROPHILS % (AUTO) 50.2 % (40-74); Platelet Count 193 bil/L (150-400)
[2017-01-14 07:23] LABS: Phosphorus 3.6 mg/dL (2.5-4.9)
[2017-01-14] MEDS: Polyethylene Glycol (PEG) 17 Gm Powder PO SCH (09:14)
[2017-01-14] MEDS: Vancomycin Inj 1,000 MG in IV Premix 1 EACH IV SCH ×2 (10:00→20:00)
[2017-01-14] MEDS: Vancomycin Dose per Pharmacist XX SCH (10:01)
--- NOTE | 2017-01-14 11:44 | PCM.PNMED ---
Subjective Date of Service Jan 14, 2017 Subjective Patient underwent I&D of multiple areas of abscesses yesterday, tolerated well Started on clindamycin, ceftriaxone per Dr. Danielle Patient complaining of pain this morning from her wounds Exam Vital Signs Vital Sign - Last Date Time Temp Pulse Resp B/P Pulse Ox O2 Delivery O2 Flow Rate FiO2 01/14/17 05:01 36.6 62 18 129/73 97 Room Air 01/13/17 16:45 2 Intake and Output 01/13/17 01/13/17 01/14/17 Cumulative From/Thru 15:00 23:00 07:00 01/11/17 13:00 - 01/14/17 05:59 Intake Total 890 ml 1900 ml 1237 ml 9217 ml Output Total 1300 ml 1600 ml 5000 ml Balance 890 ml 600 ml -363 ml 4217 ml Intake Oral 700 ml 640 ml 2937 ml IV Total 890 ml 1200 ml 597 ml 6280 ml Output Urine Total 1300 ml 1600 ml 5000 ml # Bowel Movements 0 0 Exam NAD, comfortably laying down on the bed no JVD, MMM, no LAD RRR, nl s1, s2 no mrg CTAB, no w,c S,ND,NT,normoactive BS+ warm, no edema, pulses 2/2 SKIN:sterilely dressed on buttock, labia IVs and Medications Medications Reviewed: Medications were reviewed in detail Lab and Diagnostics Result Diagram: 01/14/17 0610 01/14/17 0610 Assessment & Plan Bar Venegas is a 66 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 underwent I&D 01/13 by . initial buttock culture MRSA+ -appreciate surgery management with this complicated abscess -Cefazolin started on adm, switched to vanc 01/13, added clindamycin and ceftriaxone on 01/13 -awaits final wound culture from wound care/surgery, FU BCX chronic, stable #Neuromyotonia. Chronic, Unfortunately there are no good therapy at the moment and costly, follow upDr Brettell as outpatient #Facial redness, chronic more than >14yrs, pt was told that it was Rosacea, no hx of SLE in the past, NEHEMIAS, anti ds-DNA negative, given its chronicity, no joint sx, negative serology, needs OP follow up dispo: Likely prolonged4-5more days diet: general Full Code VTE Prophylaxis: Sub-Q Heparin (Unfractionated) VTE Mechanical Devices: Intermittant Pneumatic CD Resuscitation Status: CPR: Attempt Resuscitation Time spent 35min Ariel Raymond MD Jan 14, 2017 11:44
--- NOTE | 2017-01-14 13:34 | PCM.PNSURG ---
Subjective Date of Service: Jan 14, 2017 Visit Information: Reason for Visit Dermatitis, Buttock Abscess Surgery/Surgery Date Post-Op Day #1 Date of Admission: Jan 11, 2017 at 19:16 Hospital Day # Subjective: Pain well controlled with intermittent IV analgesic. Passing flatus but has not had a bowel movement. Ambulating in the hallway with assist device. Postop General: No Complaints Gastrointestinal: Good Appetite, Tolerating Oral Feedings, No N/V, Passing Flatus Pain Management: IV Push Postop Activity: Ambulates with Assist Device Objective Intake and Output- Last 8 Hour 01/14/17 Cumulative From/Thru 06:59 01/11/17 13:00 - 01/14/17 05:59 Intake Total 1237 ml 9217 ml Output Total 1600 ml 5000 ml Balance -363 ml 4217 ml Intake Oral 640 ml 2937 ml IV Total 597 ml 6280 ml Output Urine Total 1600 ml 5000 ml # Bowel Movements 0 General: Alert, Cooperative, No Acute Distress Lungs: Clear to Auscultation Heart: Regular Rate/Rhythm SURGICAL WOUND : Wound Location/Description Buttock wounds are examined:. Area of erythema has subsided slightly and is not is intensely erythematous. Surgical sites are under dressing, no active bleeding. Catheters: None Result Diagram: 01/14/17 0610 01/14/17 0610 Lab & Micro Results: Buttock culture from the day before yesterday growing MRSA. Assessment & Plan Impression Primary diagnosis: Bilateral buttock and perineal lesions pending final pathology. Culture positive for MRSA. POD #1 with stable wounds and slightly improved erythema. Other diagnoses: 1. Vitamin B deficiency 2. Autoantibody titer positive 3. Smooth muscle spasm 4. White matter abnormality on MRI of brain 5. Abnormal gait due to Possible Neuromyotonia 6. Elevated Blood pressure but no Hypertension 7. Diverticulosis 8. Chronic neuromyotonia Problems: Plan Antibiotics to cover MRSA have been ordered by Dr. Raymond. Pathology pending. Pain Management: Intermittent IV analgesic VTE Prophylaxis: Sub-Q Heparin (Unfractionated) Resuscitation Status: CPR: Attempt Resuscitation Ej Cooper PA-C Jan 14, 2017 13:34
[2017-01-14 15:30] VITALS: BP 146/87; PULSE 72; RESP 16; O2SAT 96
--- NOTE | 2017-01-14 19:01 | NUR ---
Dressing change Pt. c/o discomfort/irritation with mepilex dressing this morning. I put on island dressings cut in half and reinforced with a small amount of paper tape. Pt. reports that this dressing worked much better. I changed the dressings this afternoon r/t mild saturation and put some gauze under the new island dressings for extra absorption. Folded ABD pad placed on L labial absess. Held up by brief.
[2017-01-14 20:16] VITALS: BP 143/78; PULSE 64; RESP 20; O2SAT 97
[2017-01-14] MEDS: diphenhydrAMINE 25 mg Capsule PO PRN (20:53)
[2017-01-15] MEDS: Clindamycin Inj 900 MG in IV Premix 1 EACH IV SCH ×2 (01:01→08:38)
[2017-01-15] MEDS: Heparin 5,000 Unit/mL Inj SUBQ SCH ×3 (01:01→16:37)
[2017-01-15] MEDS: diphenhydrAMINE 25 mg Capsule PO PRN (02:02)
[2017-01-15] MEDS: cefTRIAXone Inj 1,000 MG in Dextrose 5% Minibag Plus 50 ML IV SCH ×2 (02:06→14:04)
--- NOTE | 2017-01-15 04:23 | NUR ---
Loose Stool Pt. reports having loose stool during shift. Pt. is concerned, and requested probiotics. Will pass on to day shift.
[2017-01-15 05:14] VITALS: BP 153/81; PULSE 65; RESP 18; O2SAT 98
[2017-01-15 07:12] LABS: BASOPHILS % (AUTO) 0.6 % (0-3); EOSINOPHILS % (AUTO) 6.6 % (0-5); MONOCYTES % (AUTO) 12.8 % (4-12); Mean Corpuscular Volume 90.8 fL (81-100); NEUTROPHILS % (AUTO) 47.6 % (40-74); Platelet Count 205 bil/L (150-400)
[2017-01-15] MEDS ORDERED: Vancomycin Serum Trough XX ONE (07:30)
[2017-01-15 07:41] LABS: Magnesium 1.9 mg/dL (1.6-2.6); Phosphorus 3.8 mg/dL (2.5-4.9)
[2017-01-15] MEDS: Polyethylene Glycol (PEG) 17 Gm Powder PO SCH (08:30)
[2017-01-15] MEDS: Vancomycin Dose per Pharmacist XX SCH (08:30)
[2017-01-15] MEDS: diphenhydrAMINE 2.5 mg/mL 5 mL Syrup PO PRN ×3 (08:37→22:39)
[2017-01-15] MEDS: Vancomycin Inj 1,000 MG in IV Premix 1 EACH IV SCH ×2 (10:24→22:39)
--- NOTE | 2017-01-15 10:55 | PCM.PNMED ---
Subjective Date of Service Jan 15, 2017 Subjective pt stated that pain is controlled, benadryl helped her itchiness, had watery diarrhea, not smelly, brownish, didn't look like c.diff per staffs sent stool sample Exam Vital Signs Vital Sign - Last Date Time Temp Pulse Resp B/P Pulse Ox O2 Delivery O2 Flow Rate FiO2 01/15/17 05:14 36.6 65 18 153/81 98 Room Air 01/13/17 16:45 2 Intake and Output 01/14/17 01/14/17 01/15/17 Cumulative From/Thru 15:00 23:00 07:00 01/11/17 13:00 - 01/15/17 06:25 Intake Total 1435 ml 693 ml 26077 ml Output Total 1500 ml 640 ml 7140 ml Balance -65 ml 53 ml 4205 ml Intake Oral 996 ml 300 ml 4233 ml IV Total 439 ml 393 ml 7112 ml Output Urine Total 1500 ml 640 ml 7140 ml # Bowel Movements 0 0 Exam NAD, comfortably laying down on the bed no JVD, MMM, no LAD RRR, nl s1, s2 no mrg CTAB, no w,c S,ND,NT,normoactive BS+ warm, no edema, pulses 2/2 SKIN:sterilely dressed on buttock, labia IVs and Medications Medications Reviewed: Medications were reviewed in detail Lab and Diagnostics Result Diagram: 01/15/17 0620 01/15/17 06 Assessment & Plan Bar Venegas is a 66 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 underwent I&D 01/13 by . initial buttock culture MRSA+ -appreciate surgery management with this complicated abscess -Cefazolin started on adm, switched to vanc 01/13, added clindamycin and ceftriaxone on 01/13 -awaits final wound culture from wound care/surgery, FU BCX #new onset diarrhea, developed 01/14-, concerning for c.diff given newly started abx chronic, stable #Neuromyotonia. Chronic, Unfortunately there are no good therapy at the moment and costly, follow upDr Jf as outpatient #Facial redness, chronic more than >14yrs, pt was told that it was Rosacea, no hx of SLE in the past, NEHEMIAS, anti ds-DNA negative, given its chronicity, no joint sx, negative serology, needs OP follow up dispo: Likely prolonged4-5more days diet: general Full Code addendum>will stop clindamycin, CFX based on cultures from abscess grew MRSA again, continue vancomycin iv. VTE Prophylaxis: Sub-Q Heparin (Unfractionated) VTE Mechanical Devices: Intermittant Pneumatic CD Resuscitation Status: CPR: Attempt Resuscitation Time spent 35min Ariel Raymond MD Jan 15, 2017 10:54
[2017-01-15 12:01] VITALS: BP 125/66; PULSE 70; RESP 14; O2SAT 96
--- NOTE | 2017-01-15 14:24 | PCM.PHAPRO ---
Progress Vancomycin Management by Pharmacy: -pt is currently receiving Vancomycin 1gm iv [id number] for bilateral buttock and perineal lesions -s/p I and D on 01/13 -trough level prior to 5th dose this am was 14.8 -wbc 7.2, afebrile, creatinine remains stable -wound culture positive for MRSA -Ceftriaxone and Clindamycin have been discontinued -Plan: continue with Vancomycin 1gm iv [id number] Alyssa Harrison [facility] Jan 15, 2017 14:24
--- NOTE | 2017-01-15 17:23 | NUR ---
Dressing change/Activity Pt dressing were soiled. Placed 4x4 gauze with island dressing cut in half and reinforce with Hypafix tape. Pt still c/o some itching and buttock area has dry skin. Pt tolerated dressing change well. Placed ABD in brief for left labial abscess. Pt was up and oob ambulating the hallway with staff. Tolerated activity well. Care continues.
[2017-01-15 20:29] VITALS: BP 157/81; PULSE 79; RESP 16; O2SAT 97
[2017-01-16] MEDS: Heparin 5,000 Unit/mL Inj SUBQ SCH ×3 (00:50→16:44)
[2017-01-16 04:08] VITALS: BP 147/84; PULSE 63; RESP 16; O2SAT 98
--- NOTE | 2017-01-16 04:11 | NUR ---
Activity Pain managed with IV toradol this shift. Pt ambulates to BR frequently due to loose stool, sample resulted negative. On isolation for MRSA from wound culture. No dressing change this shift- 4x4 on buttocks intact and not changed due to impaired skin integrity, open wound on labia cleansed and abd w/ gauze applied at site. Pt on Room air with no SOB. No complaints of chest pain. AOx4, calls appropriately.
[2017-01-16 06:47] LABS: BASOPHILS % (AUTO) 1.2 % (0-3); EOSINOPHILS % (AUTO) 4.4 % (0-5); MONOCYTES % (AUTO) 11.7 % (4-12); Mean Corpuscular Hemoglobin 28.9 pg (27.0-35.0); Mean Corpuscular Volume 90.5 fL (81-100); NEUTROPHILS % (AUTO) 48.9 % (40-74); Platelet Count 228 bil/L (150-400)
[2017-01-16 07:44] LABS: Magnesium 2.1 mg/dL (1.6-2.6); Phosphorus 3.8 mg/dL (2.5-4.9)
[2017-01-16] MEDS: Polyethylene Glycol (PEG) 17 Gm Powder PO SCH (08:30)
[2017-01-16] MEDS: Vancomycin Dose per Pharmacist XX SCH (08:30)
[2017-01-16] MEDS ORDERED: 0.9% Sodium Chloride 250 ML ONE (08:54)
[2017-01-16] MEDS: Vancomycin Inj 1,000 MG in IV Premix 1 EACH IV SCH ×2 (08:58→20:34)
[2017-01-16] MEDS: diphenhydrAMINE 2.5 mg/mL 5 mL Syrup PO PRN ×3 (08:59→21:36)
[2017-01-16 09:42] LABS: ERYTHROCYTE SEDIMENTATION RATE 38 mm/hr (0-40)
--- NOTE | 2017-01-16 11:10 | NUR ---
Social Work- Continued D/C Planning Data: EMR reviewed. Pt is on day 5 of hospitalization for dermatitis and buttock abscess per H&P. Wound Care is following pt. Pt is on isolation for MRSA from wound culture. SW met with pt, , and son at bedside to follow up regarding discharge plan. Pt unsure if she will be able to manage her wounds at home. SW awaiting recommendation from Wound Care. Pt to discharge home with to transport via POV. SW continues to follow for wound care needs. Assessment: Pt who is independent at base. Plan: Wound Care is following pt. SW awaiting recommendation from Wound Care. Pt to discharge home with to transport via POV. SW continues to follow for wound care needs. Janet Sherman MSW
--- NOTE | 2017-01-16 13:03 | PCM.PNMED ---
Subjective Date of Service Jan 16, 2017 Subjective afebrile, no overnight event had no BM since last night, last stools were watery stool PCR negative for infection Exam Vital Signs Vital Sign - Last Date Time Temp Pulse Resp B/P Pulse Ox O2 Delivery O2 Flow Rate FiO2 01/16/17 04:08 36.6 63 16 147/84 98 Room Air 01/13/17 16:45 2 Intake and Output 01/15/17 01/15/17 01/16/17 Cumulative From/Thru 15:00 23:00 07:00 01/11/17 13:00 - 01/16/17 06:04 Intake Total 1109 ml 911 ml 24525 ml Output Total 1200 ml 1550 ml 9890 ml Balance -91 ml -639 ml 3475 ml Intake Oral 720 ml 200 ml 5153 ml IV Total 389 ml 711 ml 8212 ml Output Urine Total 1200 ml 1550 ml 9890 ml # Bowel Movements 0 Exam NAD, comfortably laying down on the bed no JVD, MMM, no LAD RRR, nl s1, s2 no mrg CTAB, no w,c S,ND,NT,normoactive BS+ warm, no edema, pulses 2/2 SKIN:sterilely dressed on buttock, labia IVs and Medications Medications Reviewed: Medications were reviewed in detail Lab and Diagnostics Result Diagram: 01/16/1761701/16/17617 Assessment & Plan Bar Venegas is a 66 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 underwent I&D 01/13 by . initial buttock culture MRSA+, repeat culture from surg showed MRSA again. -appreciate surgery management with this complicated abscess -Cefazolin started on adm, switched to vanc /, added clindamycin and ceftriaxone on 01/13, stopped clindamycin, CFX 01/15 based on cultures from abscess grew MRSA again, continue vancomycin iv -likely to switch to oral agent covering MRSA, linezolid upon d/c, when cleared from surgery -FU BCX #new onset diarrhea, developed 01/14-4, concerning for c.diff given newly started abx chronic, stable #Neuromyotonia. Chronic, Unfortunately there are no good therapy at the moment and costly, follow Miquel Rhoades as outpatient #Facial redness, chronic more than >14yrs, pt was told that it was Rosacea, no hx of SLE in the past, NEHEMIAS, anti ds-DNA negative, given its chronicity, no joint sx, negative serology, needs OP follow up dispo: Likely 1-2more days, start PT assessment diet: general Full Code VTE Prophylaxis: Sub-Q Heparin (Unfractionated) VTE Mechanical Devices: Intermittant Pneumatic CD Resuscitation Status: CPR: Attempt Resuscitation Time spent 35min Ariel Raymond MD Jan 16, 2017 13:03
[2017-01-16 14:17] VITALS: BP 135/78; PULSE 75; RESP 16; O2SAT 98
--- NOTE | 2017-01-16 16:49 | NUR ---
Skin/Dsg Pt w/ purple dry flaking skin around buttocks and labia area. Spoke to , waiting for pathology reports before introducing creams or steroids. Pt aware and understands. Continue Benadryl for itching relief. Pt educated on importance of changing sides to help relieve pressure on her buttocks. Dressing on R buttock changed due to drainage. 4x4 moist gauze covered w/ Island Dsg. All other dressing c/d/i therefore not changed this shift Bed down and locked, call light w/in reach.
--- NOTE | 2017-01-16 17:34 | PROG NOTE ---
[address] [address] PROGRESS NOTE PATIENT: SULY MYRICK : 1950 MR#: [id number] ADMIT: 01/11/2017 JOB ID: [id number] DATE: The patient remains afebrile with stable vital signs. Her wounds are improving. The large right buttock ulcer and a smaller left-sided lesion are clean-based, without further purulence. Her erythematous blanching rash has dried out and is actually starting to crack. The labial edema and induration has virtually completely resolved and that wound also looks well. Final diagnosis is pending pathology, but she is certainly doing better with her current treatment. I spoke with Dr. Sullivan on Tuesday and final diagnosis is pending review with a electronics specialist and this result should be back on Tuesday. We will continue her current treatment, re-evaluate with wound care on Tuesday as well as review the final path report. I anticipate she will be discharged by Tuesday if the pathology report can be finalized on Tuesday.
[2017-01-16 20:33] VITALS: BP 132/79; PULSE 69; RESP 17; O2SAT 97
[2017-01-17] MEDS: Heparin 5,000 Unit/mL Inj SUBQ SCH ×3 (01:08→16:15)
--- NOTE | 2017-01-17 04:36 | NUR ---
Pain/itching Pt c/o buttock abscess /10 pain and itching. Toradol IVP given for pain and Benadryl for the itching. Pt states the both medications are effective in management. care ongoing.
[2017-01-17] MEDS: diphenhydrAMINE 2.5 mg/mL 5 mL Syrup PO PRN ×3 (05:49→21:35)
[2017-01-17 05:51] VITALS: BP 162/83; PULSE 65; RESP 16; O2SAT 96
[2017-01-17 07:08] LABS: BASOPHILS % (AUTO) 0.7 % (0-3); EOSINOPHILS % (AUTO) 3.5 % (0-5); Mean Corpuscular Hemoglobin 28.8 pg (27.0-35.0); Mean Corpuscular Volume 90.1 fL (81-100); NEUTROPHILS % (AUTO) 62.9 % (40-74); Platelet Count 232 bil/L (150-400)
[2017-01-17] MEDS ORDERED: Vancomycin Serum Trough XX ONE (07:30)
[2017-01-17 07:53] LABS: Magnesium 2.1 mg/dL (1.6-2.6); Phosphorus 3.2 mg/dL (2.5-4.9)
[2017-01-17] MEDS: Vancomycin Inj 1,000 MG in IV Premix 1 EACH IV SCH ×2 (08:12→22:06)
[2017-01-17] MEDS: Polyethylene Glycol (PEG) 17 Gm Powder PO SCH (08:12)
[2017-01-17] MEDS: Vancomycin Dose per Pharmacist XX SCH (08:18)
--- NOTE | 2017-01-17 13:37 | PCM.PHAPRO ---
Progress VANCOMYCIN DOSING PER PHARMACY Vancomycin trough on 01/18 @0730 came back at 16.3 Will continue Vancomycin 1 gram IV q12h Pharmacy will continue to follow, thanks! Radha Mayer PharmD Jan 17, 2017 13:37
--- NOTE | 2017-01-17 13:55 | PCM.PNMED ---
Subjective Date of Service Jan 17, 2017 Subjective pt is doing okay, pain controlled Exam Vital Signs Vital Sign - Last Date Time Temp Pulse Resp B/P Pulse Ox O2 Delivery O2 Flow Rate FiO2 01/17/17 05:51 36.7 65 16 162/83 96 01/16/17 20:33 Room Air 01/13/17 16:45 2 Intake and Output 01/16/17 01/16/17 01/17/17 Cumulative From/Thru 15:00 23:00 07:00 01/11/17 13:00 - 01/17/17 05:51 Intake Total 1213 ml 542 ml 11216 ml Output Total 1450 ml 700 ml 23521 ml Balance -237 ml -158 ml 3080 ml Intake Oral 920 ml 200 ml 6273 ml IV Total 293 ml 342 ml 8847 ml Output Urine Total 1450 ml 700 ml 84509 ml # Bowel Movements 1 1 Exam NAD, comfortably laying down on the bed no JVD, MMM, no LAD RRR, nl s1, s2 no mrg CTAB, no w,c S,ND,NT,normoactive BS+ warm, no edema, pulses 2/2 SKIN:sterilely dressed on buttock, labia IVs and Medications Medications Reviewed: Medications were reviewed in detail Lab and Diagnostics Result Diagram: 01/17/1761401/17/17614 Assessment & Plan Bar Venegas is a 66 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 underwent I&D 01/13 by . initial buttock culture MRSA+, repeat culture from surg showed MRSA again. -appreciate surgery management with this complicated abscess -Cefazolin started on adm, switched to vanc 01/13, added clindamycin and ceftriaxone on 01/13, stopped clindamycin, CFX 3/4 based on cultures from abscess grew MRSA again, continue vancomycin iv -likely to switch to oral agent covering MRSA, linezolid upon d/c, when cleared from surgery -FU BCX #new onset diarrhea, developed 3-4, concerning for c.diff given newly started abx chronic, stable #Neuromyotonia. Chronic, Unfortunately there are no good therapy at the moment and costly, follow upDr Jf as outpatient #Facial redness, chronic more than >14yrs, pt was told that it was Rosacea, no hx of SLE in the past, NEHEMIAS, anti ds-DNA negative, given its chronicity, no joint sx, negative serology, needs OP follow up dispo: likely after pathology returns, appreciate surgery for timing of d/c, PT assessment diet: general Full Code VTE Prophylaxis: Sub-Q Heparin (Unfractionated) VTE Mechanical Devices: Intermittant Pneumatic CD Resuscitation Status: CPR: Attempt Resuscitation Time spent 35min Ariel Raymond MD Jan 17, 2017 13:55
--- NOTE | 2017-01-17 14:51 | PCM.PNSURG ---
Subjective Date of Service: Jan 17, 2017 Visit Information: Reason for Visit Dermatitis, Buttock Abscess Surgery/Surgery Date Post-Op Day # 4 Date of Admission: Jan 11, 2017 at 19:16 Hospital Day # Subjective: Generally less discomfort across mons and bilateral buttocks. Complains of pruritus. Ambulating with assistance. Pain well controlled with oral Tylenol. Postop General: No Complaints Pain Management: PO Postop Activity: Ambulates with Assist Device Objective Objective Skin across mons pubis and bilateral buttocks with continued erythema although the intensity of the erythema continues to dissipate. Buttock erythema is not as widespread as it was on initial exam. The skin is now wrinkled and peeling across the buttocks. Postsurgical wounds are clean. Intake and Output- Last 8 Hour 01/17/17 Cumulative From/Thru 07:00 01/11/17 13:00 - 01/17/17 05:51 Intake Total 542 ml 74813 ml Output Total 700 ml 46057 ml Balance -158 ml 3080 ml Intake Oral 200 ml 6273 ml IV Total 342 ml 8847 ml Output Urine Total 700 ml 75287 ml # Bowel Movements 1 General: Alert, No Acute Distress Lungs: Clear to Auscultation Heart: Regular Rate/Rhythm Extremities: Thigh&Calf Soft/Nontender Neuro: Normal Speech (at baseline) Catheters: None Result Diagram: 01/17/17 0615 01/17/17 0615 Assessment & Plan Impression Primary diagnosis: Bilateral buttock and perineal lesions/erythema pending final pathology. Culture positive for MRSA. POD #4 with stable wounds and improving erythema. Other diagnoses: 1. Vitamin B deficiency 2. Autoantibody titer positive 3. Smooth muscle spasm 4. White matter abnormality on MRI of brain 5. Abnormal gait due to Possible Neuromyotonia 6. Elevated Blood pressure but no Hypertension 7. Diverticulosis 8. Chronic neuromyotonia Problems: Plan Continue current care pending final pathology. Pain Management: Oral Tylenol VTE Prophylaxis: Sub-Q Heparin (Unfractionated) Resuscitation Status: CPR: Attempt Resuscitation Ej Cooper PA-C Jan 17, 2017 14:51
--- NOTE | 2017-01-17 15:58 | NUR ---
ACTIVITY/JIMÉNEZ Patient has been ambulating around unit hallway x 13 times today with 4WW. Gait Steady. Complains of pain on bilateral buttocks. Medicated with oral tylenol in anticipation of patient discharging home tomorrow. Patient stated it was effective at bringing pain down to a 2/10, which is tolerable from a 7/10. Wound care in to see patient today and will be arranging outpatient wound care appointments for follow up. Continue hourly monitoring with patient.
--- NOTE | 2017-01-17 16:17 | NUR ---
Home Wound Vac Approval Submitted Prior authorization was faxed to [facility] and [facility] for patient to have a home wound vac when ready for discharge.
--- NOTE | 2017-01-17 16:18 | NUR ---
Wound Care Pt seen at bedside to reassess buttock wounds, present and very apprehensive about his ability to take care of his 's wounds at home once she is discharged. Dressings are removed at bedside. Right buttock wound is 4 cm L x 2 cm W x 0.8 cm deep, there is no undermining or tunneling noted today, base is 95% granular, drainage is serous and moderate. Periwound skin is erythemic and blanchable. Left buttock wound is 1 cm L x 1 cm W x 1.5 cm D, wound base is 100% fibrin, this was removed with a #15 blade and forceps. Also at the left buttock is an incisional wound which has been closed primarily and has sutures intact this wound is not draining. Skin of buttocks is red but flaking has dissipated and I suspect this redness will resolve with antibiotics. Labial wound is not visualized, pt reports it is not draining and peripad placement is recommended. Given the size and depth of wounds at the buttocks I would recommend a short course of NPWT to facilitate quick closure of these wounds and because caregiver is not able to confidently change these dressings. Will have patient follow up in the wound center on discharge.
[2017-01-17 17:18] VITALS: BP 129/74; PULSE 82; RESP 16; O2SAT 95
[2017-01-17 20:46] VITALS: BP 119/73; PULSE 80; RESP 18; O2SAT 96
[2017-01-18] MEDS: Heparin 5,000 Unit/mL Inj SUBQ SCH ×3 (01:13→16:57)
[2017-01-18] MEDS: diphenhydrAMINE 2.5 mg/mL 5 mL Syrup PO PRN ×3 (05:32→18:18)
--- NOTE | 2017-01-18 06:26 | NUR ---
Pain/Itching/Moving Patient stated pain at a 6/10 on pain scale intermittently throughout shift. Acetaminophen and Benadryl administered on a timely manner throughout shift. Patient hesitant about moving in bed and having Mepilex changed. Requested that Zan from wound care would change Mepilex bandages today. VSS. Call light within reach. Care continues.
[2017-01-18 06:51] VITALS: BP 130/81; PULSE 62; RESP 18; O2SAT 98
[2017-01-18 08:20] LABS: BASOPHILS % (AUTO) 0.7 % (0-3); EOSINOPHILS % (AUTO) 2.6 % (0-5); MONOCYTES % (AUTO) 9.7 % (4-12); Mean Corpuscular Hemoglobin 29.4 pg (27.0-35.0); Mean Corpuscular Volume 90.9 fL (81-100); NEUTROPHILS % (AUTO) 62.9 % (40-74); Platelet Count 210 bil/L (150-400)
[2017-01-18] MEDS: Polyethylene Glycol (PEG) 17 Gm Powder PO SCH (08:30)
[2017-01-18] MEDS: Vancomycin Dose per Pharmacist XX SCH (08:30)
[2017-01-18] MEDS ORDERED: 0.9% Sodium Chloride 100 ML ONE (08:38)
[2017-01-18] MEDS: Vancomycin Inj 1,000 MG in IV Premix 1 EACH IV SCH ×2 (08:42→16:46)
[2017-01-18 09:06] LABS: Magnesium 2.3 mg/dL (1.6-2.6); Phosphorus 3.8 mg/dL (2.5-4.9)
--- NOTE | 2017-01-18 10:39 | NUR ---
Home Wound Vac Approved and [facility] have approved a wound vac for patient to be placed on when ready for discharge. Please contact Zan Cotter on Vocera and he can arrange placement when ready.
[2017-01-18 14:02] VITALS: BP 126/72; PULSE 76; RESP 18; O2SAT 98
--- NOTE | 2017-01-18 14:35 | PCM.PNMED ---
Subjective Date of Service Jan 18, 2017 Subjective pt is medically stable, no complaints, ambulating hallway with normal gait Exam Vital Signs Vital Sign - Last Date Time Temp Pulse Resp B/P Pulse Ox O2 Delivery O2 Flow Rate FiO2 01/18/17 14:02 36.7 76 18 126/72 98 Room Air 01/13/17 16:45 2 Intake and Output 01/17/17 01/17/17 01/18/17 Cumulative From/Thru 15:00 23:00 07:00 01/11/17 13:00 - 01/18/17 06:51 Intake Total 236 ml 1400 ml 600 ml 26120 ml Output Total 1400 ml 350 ml 27737 ml Balance 236 ml 0 ml 250 ml 3566 ml Intake Oral 1400 ml 400 ml 8073 ml IV Total 236 ml 200 ml 9283 ml Output Urine Total 1400 ml 350 ml 13275 ml # Bowel Movements 0 1 Exam NAD, comfortably laying down on the bed no JVD, MMM, no LAD RRR, nl s1, s2 no mrg CTAB, no w,c S,ND,NT,normoactive BS+ warm, no edema, pulses 2/2 SKIN:sterilely dressed on buttock, labia IVs and Medications Medications Reviewed: Medications were reviewed in detail Lab and Diagnostics Result Diagram: 01/18/17 0750 01/18/17 0750 Assessment & Plan Bar Venegas is a 66 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 underwent I&D 01/13 by . initial buttock culture MRSA+, repeat culture from surg showed MRSA again. -appreciate surgery management with this complicated abscess -Cefazolin started on adm, switched to vanc 01/13, added clindamycin and ceftriaxone on 01/13, stopped clindamycin, CFX 3/4 based on cultures from abscess grew MRSA again, continue vancomycin iv for now, will consider linezolid -likely to switch to oral agent covering MRSA, linezolid upon d/c, when cleared from surgery -FU BCX #new onset diarrhea, developed 3-4, concerning for c.diff given newly started abx chronic, stable #Neuromyotonia. Chronic, Unfortunately there are no good therapy at the moment and costly, follow Ingridr Jf as outpatient #Facial redness, chronic more than >14yrs, pt was told that it was Rosacea, no hx of SLE in the past, NEHEMIAS, anti ds-DNA negative, given its chronicity, no joint sx, negative serology, needs OP follow up dispo: home with HH, likely after pathology returns, appreciate surgery for timing of d/c, PT assessment diet: general Full Code VTE Prophylaxis: Sub-Q Heparin (Unfractionated) VTE Mechanical Devices: Intermittant Pneumatic CD Resuscitation Status: CPR: Attempt Resuscitation Time spent 35min Ariel Raymond MD Jan 18, 2017 14:35
--- NOTE | 2017-01-18 14:52 | NUR ---
Pain Patient reported 5-6 out of 10 buttocks pain. 650 mg of acetaminophen given. Patient denies nausea at this time. Patient repositions self for comfort. Call light and tray table within reach. Will continue to monitor patient hourly.
--- NOTE | 2017-01-18 15:59 | NUR ---
Social Work- Readiness for Discharge Data: EMR reviewed. Pt is on day 7 of hospitalization for Dermatitis per H&P. Pt is not medically stable for discharge, anticipate 1-2 more days. MD awaiting pathogen report. SW spoke with pt at bedside regarding wound care needs and discharge plan. Wound care is following patient, authorization for home wound vac has been obtained. Pt states she is unsure that her will be able to manage her wound care needs. Pt states she is willing to go to the wound care center for her wound care needs. Pt declines HH at this time as she is not homebound. Pt to discharge home with to transport via POV. SW will continue to follow. Assessment: Pt to discharge home with wound vac and follow up at Wound Care Center. Plan: Pt to discharge home with wound vac and follow up at Wound Care Center. Pt to discharge home with to transport via POV. SW will continue to follow. COOKIE Hooper
--- NOTE | 2017-01-18 16:37 | PCM.PNSURG ---
Subjective Date of Service: Jan 18, 2017 Visit Information: Reason for Visit Dermatitis, Buttock Abscess Surgery/Surgery Date Post-Op Day #5 Date of Admission: Jan 11, 2017 at 19:16 Hospital Day # Subjective: Only complaint of discomfort is over mons pubis. Otherwise pain well controlled with oral Tylenol, ambulating with assist device, voiding without difficulty. Postop General: Other (as above) Pain Management: PO Postop Activity: Ambulates with Assist Device Objective Objective Bilateral buttocks are examined: Erythema and scattered satellite lesions continue to have resolving erythema. Skin wrinkling is prominent. Less peeling /desquamation. Biopsy sites are under dressings. Minimal tenderness to palpation over the mons pubis were erythema also continues to resolve. Vital Sign- Last 8 Hours Date Time Temp Pulse Resp B/P Pulse Ox O2 Delivery O2 Flow Rate FiO2 01/18/17 14:02 36.7 76 18 126/72 98 Room Air Intake and Output- Last 8 Hour 01/18/17 Cumulative From/Thru 07:00 01/11/17 13:00 - 01/18/17 06:51 Intake Total 600 ml 68004 ml Output Total 350 ml 43908 ml Balance 250 ml 3566 ml Intake Oral 400 ml 8073 ml IV Total 200 ml 9283 ml Output Urine Total 350 ml 18461 ml # Bowel Movements 0 1 General: Alert, Cooperative, No Acute Distress Lungs: Clear to Auscultation Heart: Regular Rate/Rhythm Neuro: Normal Speech Catheters: None Result Diagram: 01/18/17 0750 01/18/17 0750 Assessment & Plan Impression Primary diagnosis: Bilateral buttock and perineal lesions/erythema, pending final pathology. Culture positive for MRSA. POD #5 with stable wounds and improving erythema. Other diagnoses: 1. Vitamin B deficiency 2. Autoantibody titer positive 3. Smooth muscle spasm 4. White matter abnormality on MRI of brain 5. Abnormal gait due to Possible Neuromyotonia 6. Elevated Blood pressure but no Hypertension 7. Diverticulosis 8. Chronic neuromyotonia Problems: Plan 1. Pending a call back from Dr. Le with dermatology concerning recommendations. 2. Wound VAC tomorrow morning by wound care. 3. Unless WBC continues to rise will continue discharge in the morning on oral MRSA antibiotic. Pain Management: Tylenol VTE Prophylaxis: Sub-Q Heparin (Unfractionated) Resuscitation Status: CPR: Attempt Resuscitation Ej Cooper PA-C Jan 18, 2017 16:37
--- NOTE | 2017-01-18 18:43 | NUR ---
Pain C/o pain 4/10bilateral buttock redness. PRN Tylenol given as ordered. IV Vanco as ordered this shift. stable vital signs. Alert and oriented X3. stable mood. call light with in reach for safety. continue to monitor vital signs, pain, infection and safety.
[2017-01-18] MEDS: Mupirocin 2% 22 Gm Ointment TOPICAL SCH (20:30)
[2017-01-18 20:50] VITALS: BP 134/76; PULSE 70; RESP 20; O2SAT 98
[2017-01-19] MEDS: diphenhydrAMINE 2.5 mg/mL 5 mL Syrup PO PRN ×3 (00:30→14:34)
[2017-01-19] MEDS: Heparin 5,000 Unit/mL Inj SUBQ SCH ×2 (00:31→08:29)
--- NOTE | 2017-01-19 02:33 | NUR ---
Dressing/Pain Patient complaining of 6/10 buttocks pain. Receiving PO Tylenol with effective results. Noted to be resting with eyes closed upon reassessment. Dressing to right buttock accidentally removed while patient was having a BM. New Mepilex applied to site. Patient refusing Mupirocin cream to be applied to wound sites, as a MD told her "not to put anything on it until the pathology report returns." Mupirocin held this shift per pt request.
[2017-01-19] MEDS ORDERED: 0.9% Sodium Chloride 250 ML ONE (04:10)
[2017-01-19] MEDS: Vancomycin Inj 1,000 MG in IV Premix 1 EACH IV SCH (04:18)
[2017-01-19 05:55] VITALS: BP 137/80; PULSE 64; RESP 18; O2SAT 97
[2017-01-19 06:11] LABS: Hepatitis A Antibody IgM Negative (Negative); Hepatitis B Core Antibody IgM Negative (Negative)
[2017-01-19 07:21] LABS: BASOPHILS % (AUTO) 0.7 % (0-3); EOSINOPHILS % (AUTO) 3.3 % (0-5); Mean Corpuscular Hemoglobin 28.9 pg (27.0-35.0); Mean Corpuscular Volume 91.1 fL (81-100); NEUTROPHILS % (AUTO) 54.5 % (40-74); Platelet Count 210 bil/L (150-400)
[2017-01-19] MEDS ORDERED: MUPI22OI2 TOPICAL (07:52)
[2017-01-19] MEDS ORDERED: MUPI1OIN5 NASAL (07:52)
--- NOTE | 2017-01-19 08:16 | PCM.PNSURG ---
Subjective Date of Service: Jan 19, 2017 Visit Information: Reason for Visit Dermatitis, Buttock Abscess Surgery/Surgery Date Post-Op Day # 6 Date of Admission: Jan 11, 2017 at 19:16 Hospital Day # Subjective: Pain well controlled with oral Tylenol. Pruritus well-controlled with oral Benadryl. Anticipating discharge today. A discussion was held with Dr. Le from dermatology yesterday afternoon. He recommends: Twice a day mupirocin ointment until the mons pubis and buttocks rash clears. He also recommends twice a day mupirocin ointment to both nears twice a day for 5 days, for 5 days a month 3 months. Pain Management: PO Postop Activity: Ambulates with Assist Device Objective Objective Mons pubis erythema continues to resolve with few scattered satellite lesions resolving at the same rate. Bilateral buttock erythema also is resolving with similar resolution of satellite lesions across the buttock region. Both surgical wounds are under dressings. Vital Sign- Last 8 Hours Date Time Temp Pulse Resp B/P Pulse Ox O2 Delivery O2 Flow Rate FiO2 01/19/17 05:55 36.7 64 18 137/80 97 Room Air Intake and Output- Last 8 Hour 01/19/17 Cumulative From/Thru 07:00 01/11/17 13:00 - 01/19/17 06:30 Intake Total 201 ml 62559 ml Output Total 21235 ml Balance 201 ml 4056 ml Intake Oral 8950 ml IV Total 201 ml 9596 ml Output Urine Total 25262 ml # Bowel Movements 1 General: Alert, Cooperative, No Acute Distress Lungs: Clear to Auscultation Heart: No Murmurs/Rubs/Gallops Extremities: Thigh&Calf Soft/Nontender Neuro: Normal Speech Catheters: None Result Diagram: 01/19/17 0650 01/18/17 0750 Assessment & Plan Impression Primary diagnosis: Bilateral buttock and perineal lesions/erythema, final pathology demonstrating MRSA infection only. Culture positive for MRSA. POD #6 with stable wounds and improving erythema. Surgically stable for discharge on oral MRSA antibiotic. Other diagnoses: 1. Vitamin B deficiency 2. Autoantibody titer positive 3. Smooth muscle spasm 4. White matter abnormality on MRI of brain 5. Abnormal gait due to Possible Neuromyotonia 6. Elevated Blood pressure but no Hypertension 7. Diverticulosis 8. Chronic neuromyotonia Problems: Plan The patient will be discharged to home today on an oral MRSA antibiotic and topical mupirocin with wound VAC in place. She will follow-up in the wound center for wound VAC change. She will follow-up with Dr. Echeverria in 2 weeks for continued treatment of MRSA. Pain Management: Tylenol VTE Prophylaxis: Sub-Q Heparin (Unfractionated) Resuscitation Status: CPR: Attempt Resuscitation copies to: Meseret Echeverria MD, Fred H PA-C Jan 19, 2017 08:16
[2017-01-19] MEDS: Polyethylene Glycol (PEG) 17 Gm Powder PO SCH (08:28)
[2017-01-19] MEDS: Vancomycin Dose per Pharmacist XX SCH (08:30)
--- NOTE | 2017-01-19 10:32 | PCM.DIMED ---
Discharge Instructions Date of Service Jan 19, 2017 Dates of Hospitalization Jan 11, 2017 at 19:16 Discharge Diagnosis Discharge Diagnosis ulcers/cellultis on bilateral buttock and labia due to MRSA infection, s/p I&D Medication Instructions Please continue to take Linezolid twice a day for 2more weeks. Please continue bacitracin ointment as directed on your wounds and nare Diet No restrictions Activity No restrictions Patient Instructions You were hospitalized extensive wounds on multiple areas on your buttock and labia, treated with surgical intervention and antibiotics, clinically greatly improved. Please follow detailed instruction from Wound Care service, continue to follow up with Wound care center as directed. Please follow medicine instruction as above. Follow-up plan Please follow up with your primary doctor in 2weeks, Follow-up Provider: Meseret Echeverria MD Follow-up with PCP in: 2 weeks Provider: [facility] Follow-up in: 1 week Ariel Raymond MD Jan 19, 2017 10:32
[2017-01-19] MEDS: Mupirocin 2% 22 Gm Ointment TOPICAL SCH (10:51)
[2017-01-19] MEDS ORDERED: LINE600T7 PO (11:40)
--- NOTE | 2017-01-19 12:11 | NUR ---
Wound Care Pt seen at bedside for instruction of NPWT use and charging, present. Right buttock wound measures 4.5 cm L x 3 cm W x 0.4 cm D. Black foam applied to wound bed and pressure set at 150 mmHg continuous therapy, a good seal was attained, thick duoderm and tape were placed over the left buttock ulcer which measures 1.5 Cm L x 1 cm W x 1 cm D. mupirocin ointment applied to flaky skin at buttocks and sacrum. Pt tolerating well and will be seen at the wound center 01/21 for dressing change and then with Dr Barnard at the wound center on Tuesday of next week.
--- NOTE | 2017-01-19 15:02 | NUR ---
Discharge Pt was d/c'd from [facility] room 1026 at 1505 home via private vehicle. IV d/c'd intact. Wound vac in place and running. RX faxed to pharmacy and hard copy with pt. All discharge teaching and instructions done with at bedside. Pt was up and ambulating the hallway, walked two miles this morning. No items in the safe or pharmacy. All questions answered. Teaching on RX done. Pt to f/u with wound care on Tuesday and Tuesday. Pt has apts and times.
[2017-01-19] MEDS ORDERED: Vancomycin Serum Trough XX ONE (16:00)
--- NOTE | 2017-01-19 16:44 | PCM.DC.MED ---
Discharge Summary Date of Service Jan 19, 2017 Dates of Hospitalization Date of Hospital Admission Jan 11, 2017 at 19:16 Date of Discharge: Jan 19, 2017 Providers: Admitting Physician: Maldonado Lloyd MD Primary Care Physician: Meseret Echeverria MD Attending Physician: Maldonado Lloyd MD Diagnosis at Time of Discharge Diagnosis at Time of Discharge acute problems abscess/ulcers/cellultis on bilateral buttock and labia due to MRSA infection, s /p I&D new onset diarrhea, self limited chronic #Neuromyotonia. #Facial redness, likely Rosacea Procedures XRay, CTs & MRIs PROCEDURE: CT PELVIS WITH CONTRAST ([id number]) INDICATIONS: rash and progressive infectious perineal lesions TECHNIQUE: After the administration of intravenous contrast, 5 mm thick sections acquired from the iliac crests to the symphysis. 5 mm coronal and sagittal reformats were acquired. For radiation dose reduction, the following was used: automated exposure control, adjustment of mA and/or kV according to patient size. COMPARISON: [facility], CT, CT CHEST ABD PELVIS W CON, 10/17/2015, 11:56. FINDINGS: Image quality: Excellent. Peritoneum and bowel: Bowel loops demonstrate normal wall thickness and caliber. No free fluid or air. Genitourinary: Bladder wall thickness is normal. Exophytic mass protrudes posteriorly from the uterine fundus, as before, measuring roughly 40 mm, and is not significantly changed. Nodes and vessels: No iliac, pelvic, or inguinal adenopathy by size criteria. Iliac vessels demonstrate normal size and enhancement. Bones: No suspicious bony lesions. Miscellaneous: No inguinal hernias. There is severe subcutaneous edema within the right inferomedial gluteal region. There are a few small foci of superficial subcutaneous gas within the right inferomedial gluteal region. There is moderate subcutaneous fat stranding within the left inferomedial gluteal region. Moderate fat stranding within the subcutaneous fat of the left mons pubis. IMPRESSION: 1. Right greater than left inferomedial gluteal cellulitis. There is associated soft tissue gas within the subcutaneous fat of the right inferomedial gluteal region, suggestive of ulceration and/or infection with a gas producing organism. Cellulitis within the subcutaneous fat of the left mons pubis. 2. No change in left uterine fibroid. 3. Findings discussed with Dr. Danielle's nurse, May Soriano, on 01.13.17 at 14:57 hrs. She understood the urgent nature of the findings, and agreed to communicate them to Dr. Danielle as soon as possible. Dictated by: Kenzie Paul M.D. on 01/13/2017 at 14:52 Transcribed by: RAMON on 01/13/2017 at 14:59 Approved by: Kenzie Paul M.D. on 01/13/2017 at 14:59 Brief History HPI obtained by on 01/11 Bar Venegas is a 66 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 ER accompanied by her complaining of a painful rash and abscess on her buttocks. Associated symptom of subjective fever with some chills. She states that she noticed that the skin on her bottom started flanking 5-6 weeks ago. She treated with antibiotic ointment with no relief. Symptoms then progressed to "pimples" diffusely across her buttocks, and a large abscess on the right buttock that developed 9 days ago that has since begun draining after the application of hydrogen peroxide. She also has another smaller abscess in the upper left upper buttock area which is also draining. Patient denies cough, sore throat, chest pain, nausea, vomiting, diarrhea, and urinary symptoms. Case discussed with Dr Rhodes, he spoke to Dr Danielle who evaluated the patient and recommended admission for IV antibiotics. Labs noted for leukocytosis. Hospital Course Bar Venegas is a 66 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 ER accompanied by her complaining of a painful rash and abscess on her buttock acute problems #Acute Buttock abscesses and labial abscess, patient was admitted with this subacute onset extensive abscess, noted to have wbc, subjective fever, CT showed bilateral gluteal cellulitis with gas, Cellulitis within the subcutaneous fat of the left mons pubis. pt underwent I&D 01/13 by . initial buttock culture MRSA+, repeat culture from surg showed MRSA again. Cefazolin started on adm, switched to vanc 01/13, added clindamycin and ceftriaxone on 01/13, stopped clindamycin, CFX on 01/15 based on cultures from abscess grew MRSA again, pt was continued vancomycin iv until d/c , given this large ulcer, pt stayed until final pathology comes back which showed no fungus or malignant cells, strep cocci in clusters. Given the final pathology, MRSA infection was confirmed, plan to continue linezolid for additional 2weeks with topical bacitracin. Wound Vac was placed by Wound service and will be followed up with wound care clinic. #new onset diarrhea, developed 3/3-4, concerning for c.diff given newly started abx but stool PCR was negative, diarrhea spontaneously resolved. chronic, stable #Neuromyotonia. Chronic, Unfortunately there are no good therapy at the moment and costly, follow up with Dr Rhoades as outpatient #Facial redness, chronic more than >14yrs, pt was told that it was Rosacea, no hx of SLE in the past, NEHEMIAS, anti ds-DNA negative, given its chronicity, no joint sx, negative serology, unlikely SLE, needs monitoring and OP follow up. Exam Vital Signs (Last) Date Time Temp Pulse Resp B/P Pulse Ox O2 Delivery O2 Flow Rate FiO2 01/19/17 05:55 36.7 64 18 137/80 97 Room Air 01/13/17 16:45 2 Exam NAD, comfortably laying down on the bed no JVD, MMM, no LAD RRR, nl s1, s2 no mrg CTAB, no w,c S,ND,NT,normoactive BS+ warm, no edema, pulses 2/2 SKIN:sterilely dressed on buttock, labia Test 01/11/17 13:45 01/11/17 15:22 01/12/17 06:30 01/13/17 08:00 Hold Brush Top Tube Received (Received) Hold Urine Received (Received) Anti-Nuclear Antibody Screen Negative (Negative) Anti-Double Strand DNA Antibody <1IU/mL (0-9) Procalcitonin 0.07ng/mL (0.00-0.08) Test 01/16/17 06:18 01/17/17 07:25 01/18/17 07:50 01/19/17 06:50 Erythrocyte Sedimentation Rate 38mm/hr (0-40) C-Reactive Protein 1.4mg/dL (0.0-0.5) Vancomycin Level Trough 16.3mcg/mL Sodium Level 141mEq/L (134-144) Potassium Level 4.5mEq/L (3.5-5.2) Chloride Level 102mEq/L (97-108) Carbon Dioxide Level 24mmol/L (18-29) Blood Urea Nitrogen 14mg/dL (8-27) Creatinine 0.73mg/dL (0.57-1.00) Estimat Glomerular Filtration Rate 115mL/min (>59) Glucose Level 100mg/dL (60-99) Calcium Level 9.0mg/dL (8.5-10.1) Phosphorus Level 3.8mg/dL (2.5-4.9) Magnesium Level 2.3mg/dL (1.6-2.6) Total Bilirubin 0.2mg/dL (0.0-1.2) Aspartate Amino Transf (AST/SGOT) 41U/L (0-50) Alanine Aminotransferase (ALT/SGPT) 50U/L (0-32) Alkaline Phosphatase 128U/L (25-165) Total Protein 6.9g/dL (6.4-8.4) Albumin 3.9g/dL (3.4-5.0) Hepatitis A IgM Antibody Negative (Negative) Hepatitis B Surface Antigen Negative (Negative) Hepatitis B Core IgM Antibody Negative (Negative) Hepatitis C Antibody <0.1s/co ratio (0.0-0.9) Hepatitis C Comment Comment (.) White Blood Count 11.1th/mm3 (3.8-10.1) Red Blood Count 4.26mil/mm3 (3.90-5.20) Hemoglobin 12.3g/dL (12.0-15.6) Hematocrit 38.8% (35.0-46.0) Mean Corpuscular Volume 91.1fL (81-100) Mean Corpuscular Hemoglobin 28.9pg (27.0-35.0) Mean Corpuscular Hemoglobin Concent 31.7% (32.0-37.0) Red Cell Distribution Width 13.2% (12.3-15.4) Platelet Count 210bil/L (150-400) Neutrophils (%) (Auto) 54.5% (40-74) Lymphocytes (%) (Auto) 28.0% (14-46) Monocytes (%) (Auto) 10.0% (4-12) Eosinophils (%) (Auto) 3.3% (0-5) Basophils (%) (Auto) 0.7% (0-3) Discharge Medications Discharge Medications Ascorbic Acid (Vitamin C) 1,000 Mg Tab.chew 2,000 MG PO DAILY (Reported) Cholecalciferol (Vitamin D3) (Vitamin D3) 5,000 Unit Capsule 5,000 UNIT PO DAILY (Reported) Cyanocobalamin (Vitamin B-12) (Vitamin B-12) 1,000 Mcg Tab.subl 1,000 MCG SL DAILY (Reported) Linezolid (Linezolid) 600 Mg Tablet 600 MG PO BID Prescribed by: ARIEL LOPEZ MD Magnesium Oxide (Magnesium Oxide) 420 Mg Tablet 1,260 MG PO DAILY (Reported) Multivitamin (Multivitamins) 1 Each Capsule 1 EACH PO DAILY (Reported) Mupirocin (Mupirocin Ointment) 22 Gm Oint...g. 1 APPLIC TOPICAL BID Prescribed by: ARIEL LOPEZ MD Mupirocin Nasal Oint (Bactroban Nasal Oint) 1 Gm Oint...g. 1 APPLIC NASAL BID Prescribed by: ARIEL LOPEZ MD Vitamin E Acetate (Vitamin E) 600 Unit Capsule 600 UNIT PO DAILY (Reported) Zoster Vaccine Live/Pf (Zostavax Vial) 19,400 Unit Vial 19,400 UNIT SQ DIRECTED (Reported) Additional med instructions Please continue to take Linezolid twice a day for 2more weeks. Please continue bacitracin ointment as directed on your wounds and nare Followup Plan Disposition: home Follow-up plan Please follow up with your primary doctor in 2weeks, Discharge Diet: No restrictions Discharge Activity: No restrictions Patient Instructions You were hospitalized extensive wounds on multiple areas on your buttock and labia, treated with surgical intervention and antibiotics, clinically greatly improved. Please follow detailed instruction from Wound Care service, continue to follow up with Wound care center as directed. Please follow medicine instruction as above. Follow-up Provider: Meseret Echeverria MD Follow-up with PCP in: 2 weeks Provider: [facility] Follow-up in: 1 week Time spent 65min Ariel Lopez MD Jan 19, 2017 16:15
== END 2017-01-19 15:04 | disposition home or self-care (01) | DRG 571 ==
LOC: SED 12:46 → OBSVTOIN 19:16 → OSC 19:16
PROVIDERS: ADMIT Hospitalist; ATTEND Hospitalist
PROC: 0U9MXZX Drainage of Vulva, External Approach, Diagnostic (ICD-10-PCS; 2017-01-13)
PROC: 0HB8XZX Excision of Buttock Skin, External Approach, Diagnostic (ICD-10-PCS; 2017-01-13)
PROC: 0JB90ZZ Excision of Buttock Subcutaneous Tissue and Fascia, Open Approach (ICD-10-PCS; principal; 2017-01-13 14:30)
DX: L02.31 Cutaneous abscess of buttock (principal); N76.4 Abscess of vulva; G71.19 Other specified myotonic disorders; L03.317 Cellulitis of buttock; B95.62 Methicillin resistant Staphylococcus aureus infection as the cause of diseases classified elsewhere